=== PATIENT | male | born 1935 | race Caucasian/White ===

== ENCOUNTER 2017-09-16 16:19 | Emergency (ER) | payer OTHER ==
[~2017-09-16] VITALS: Ht 172.7 cm; Wt 98.0 kg
[~2017-09-16 16:19] MED LIST: ACET-1138 PO; ASPEC81 PO; CLB200 PO; EPP3/2 IM; LISI-461 PO; PANT40TA PO; RXC5 PO; SNK PO; THIA250T7 PO
[2017-09-16 16:42] VITALS: TEMP 36.3; Ht 172.7 cm; Wt 98.0 kg
--- NOTE | 2017-09-16 16:57 | EMERGENCY ROOM VISIT NOTE ---
History Report prepared by Ruslan: Reggie Persaud Under the Supervision of: Dr. Jad Carlisle M.D. First contact with patient: 16:46 Chief Complaint: FALL Stated Complaint: FALL- BUMP ON HEAD AND SHOULDER PAIN History of Present Illness The patient is an 82 year old male who presents to the Emergency Room with complaints of constant left shoulder pain following a fall today. The patient states that he tripped today and tried to catch himself before he fell. He notes that he fell onto his left shoulder. He reports that he felt his shoulder "slip out" when he was being helped up. He also complains of a bump on his head and right knee pain. He denies any LOC, hip pain, abdominal pain, vomiting, and elbow pain. The patient states that he does not have any pain when he walks. He notes that he takes medication for his blood pressure. He reports that he had a right knee replacement done 2 years ago. Source of History: patient Onset: today Position: shoulder (left) Timing: constant Associated Symptoms: No LOC, No vomiting, No abdominal pain Note: The patient also complains of a bump on his head and of right knee pain. He denies any hip pain and elbow pain. Review of Systems See HPI for pertinent positives & negatives. A total of 10 systems reviewed and were otherwise negative. Past Medical & Surgical Medical Problems: (1) H/o Lyme disease (2) Hyperlipidemia (3) Hypertension (4) Prostate cancer Surgical Problems: (1) H/O radical prostatectomy (2) H/O right knee surgery (3) Post-operative state (4) S/P cataract surgery Family History Heart disease Hypertension Social History Smoking Status: Former Smoker Marital Status: Housing Status: lives with family Occupation Status: retired Current/Historical Medications Scheduled Aspirin (Aspirin Ec), 81 MG PO DAILY Lisinopril (Lisinopril), 10 MG PO QAM Scheduled PRN Epinephrine (Epipen), 0.3 MG IM UD PRN for ALLERGIC REACTION Allergies Coded Allergies: NO KNOWN DRUG ALLERGIES (Verified Allergy, Mild, ., 11/16/15) BEE STING (Verified Allergy, Unknown, tongue and throat sweling, 11/16/15) Physical Exam Vital Signs Date Time Temp Pulse Resp B/P (MAP) Pulse Ox O2 Delivery O2 Flow Rate FiO2 09/16/17 18:10 88 16 119/85 98 09/16/17 16:42 36.3 94 20 172/93 95 Physical Exam GENERAL: Awake, alert, well-appearing, in no acute distress HENT: Normocephalic, atraumatic. Oropharynx unremarkable. 2in x 2in contusion to the right side of the forehead. EYES: Normal conjunctiva. Sclera non-icteric. NECK: Supple. No nuchal rigidity. FROM. No JVD. RESPIRATORY: Clear to auscultation. CARDIAC: Regular rate, normal rhythm. Extremities warm and well perfused. Pulses equal. ABDOMEN: Soft, non-distended. No tenderness to palpation. No rebound or guarding. No masses. RECTAL: Deferred. MUSCULOSKELETAL: Chest examination reveals no tenderness. The back is symmetrical on inspection without obvious abnormality. There is no CVA tenderness to palpation. No joint edema. Able to lift shoulder to the 90 degree dave. Left arm is neurovascularly intact. Good ROM to wrist and elbow. LOWER EXTREMITIES: Calves are equal size bilaterally and non-tender. No edema. No discoloration. Superficial abrasion to the right knee. No pain with varus or valgus stress. NEURO: Normal sensorium. No sensory or motor deficits noted. SKIN: No rash or jaundice noted. Medical Decision & Procedures ER Provider Diagnostic Interpretation: Radiology results as stated below per my review and radiologist interpretation: L SHOULDER MIN 2 VIEWS ROUTINE FINDINGS: Glenohumeral and acromioclavicular joints congruent. Degenerative changes of the acromioclavicular joint. Minimal degenerative change of the glenohumeral joint evidenced by osteophytosis at the inferior bony glenoid. No acute fracture or malalignment. No radiographic soft tissue abnormality. Visualized portion of the lungs clear. IMPRESSION: 1. No acute osseous injury of the left shoulder. 2. Mild degenerative changes of the acromioclavicular and glenohumeral joints. Electronically signed by: Rhett Shah M.D. 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 Interval development of lucency subjacent to the tibial plateau component, which measures 3 mm laterally but only 2 mm medially. This was not apparent immediately post surgical. Small knee joint effusion evident. Possible prominent loose bodies in the posterior joint versus fabella. Atherosclerosis. No acute fracture or malalignment. IMPRESSION: Interval development of periprosthetic lucency at the tibial plateau medially and laterally but most prominently laterally. This is concerning for infection or loosening. The report will be called/faxed according to standard departmental protocol. Electronically signed by: Rhett Shah M.D. 09/16/2017 5:19 PM HEAD WITHOUT CONTRAST (CT) FINDINGS: Compliance Reviewer topogram: Unremarkable. Ventricles and sulci normal in size. Brain parenchyma normal in appearance with preserved michaels-white differentiation. No mass effect or midline shift. No hemorrhage or acute territorial infarct. No extra-axial fluid collection. Paranasal sinuses and mastoid air cells clear. Irregularity of the inner table of the calvarium in the right frontal region is unchanged since 2014 (series 3 image 19). Significant focal superficial soft tissue hematoma in the right frontal region. No subjacent osseous injury. IMPRESSION: 1. No acute intracranial abnormality. 2. Focal superficial soft tissue hematoma in the right frontal region. No subjacent osseous injury. Electronically signed by: Rhett Shah M.D. 09/16/2017 5:45 PM ED Course 1647: Past medical records reviewed. The patient was evaluated in room B2. A complete history and physical examination was performed. 1802: Upon reexamination the patient is stable. I discussed results and treatment plan with the patient. He verbalizes agreement and understanding. The patient is ready for discharge. Medical Decision Differential diagnosis: Etiologies such as fracture, dislocation, intra-abdominal, pneumothorax, intrathoracic , intracranial, neurologic, as well as other traumatic pathologies were entertained. This is an 82-year-old male who presents to the emergency department after a fall. The patient has a contusion to the right side of his forehead. I stressed the need for ice to this area. The patient is refusing pain medication. He had no loss of consciousness. In addition the patient is also complaining of right knee pain as well as left shoulder pain. The patient is neurovascularly intact and does not appear to have a shoulder dislocation. He was given a sling as his x-rays do not show any acute fracture dislocation or subluxation. I also stressed the need for follow-up with the patient's orthopedic surgeon over concerns that the hardware in his right knee is loosening. Patient was in agreement with the treatment plan. Head Trauma GCS Score: 15 Blood Pressure Screening Patient's blood pressure: Normal blood pressure Blood pressure disposition: Did not require urgent referral Impression Primary Impression: Fall Additional Impressions: Contusion Head injury Shoulder pain, left Knee pain, right Scribe Attestation The scribe's documentation has been prepared under my direction and personally reviewed by me in its entirety. I confirm that the note above accurately reflects all work, treatment, procedures, and medical decision making performed by me. Departure Information Dispostion Home / Self-Care Referrals Carlton Tinoco M.D. (PCP) Forms HOME CARE DOCUMENTATION FORM, IMPORTANT VISIT INFORMATION Patient Instructions [facility] Additional Instructions Follow up with Dr Mobley's office for both knee and shoulder You have been examined and treated today on an emergency basis only. This is not a substitute for, or an effort to provide, complete comprehensive medical care. It is impossible to recognize and treat all injuries or illnesses in a single emergency department visit. It is therefore important that you follow up closely with Dr Tinoco. Call as soon as possible for an appointment. Thank you for your time and consideration. I look forward to speaking with you again soon. Please don't hesitate to call us if you have any questions. Problem Qualifiers Primary Impression: Fall Encounter type: initial encounter Qualified Codes: W19.XXXA - Unspecified fall, initial encounter Additional Impressions: Contusion Encounter type: initial encounter Contusion area: head Contusion of head detail: scalp Qualified Codes: S00.03XA - Contusion of scalp, initial encounter Head injury Encounter type: initial encounter Qualified Codes: S09.90XA - Unspecified injury of head, initial encounter Shoulder pain, left Chronicity: acute Qualified Codes: M25.512 - Pain in left shoulder Knee pain, right Chronicity: acute Qualified Codes: M25.561 - Pain in right knee
[2017-09-16] MEDS ORDERED: ASPI81TA28 PO (17:16)
--- NOTE | 2017-09-16 17:19 | DIAGNOSTIC IMAGING REPORT ---
L SHOULDER MIN 2 VIEWS ROUTINE CLINICAL HISTORY: 82 years-old Male presenting with Pt c/o left shoulder pain . TECHNIQUE: Internal rotation, external rotation, Grashey views of the left shoulder were obtained. COMPARISON: Chest x-ray from 10/21/2015. FINDINGS: Glenohumeral and acromioclavicular joints congruent. Degenerative changes of the acromioclavicular joint. Minimal degenerative change of the glenohumeral joint evidenced by osteophytosis at the inferior bony glenoid. No acute fracture or malalignment. No radiographic soft tissue abnormality. Visualized portion of the lungs clear. IMPRESSION: 1. No acute osseous injury of the left shoulder. 2. Mild degenerative changes of the acromioclavicular and glenohumeral joints. Electronically signed by: Rhett Shah M.D. 09/16/2017 5:17 PM Dictated Date/Time: 09/16/2017 5:16 PM
--- NOTE | 2017-09-16 17:21 | DIAGNOSTIC IMAGING REPORT ---
R KNEE 1 OR 2 VIEWS ROUTINE CLINICAL HISTORY: 82 years-old Male presenting with Pt c/o Rt knee pain, fall. TECHNIQUE: Frontal and lateral views of the right knee were obtained. COMPARISON: 11/16/2015. 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 Interval development of lucency subjacent to the tibial plateau component, which measures 3 mm laterally but only 2 mm medially. This was not apparent immediately post surgical. Small knee joint effusion evident. Possible prominent loose bodies in the posterior joint versus fabella. Atherosclerosis. No acute fracture or malalignment. IMPRESSION: Interval development of periprosthetic lucency at the tibial plateau medially and laterally but most prominently laterally. This is concerning for infection or loosening. The report will be called/faxed according to standard departmental protocol. Electronically signed by: Rhett Shah M.D. 09/16/2017 5:19 PM Dictated Date/Time: 09/16/2017 5:17 PM
--- NOTE | 2017-09-16 17:46 | DIAGNOSTIC IMAGING REPORT ---
HEAD WITHOUT CONTRAST (CT) CLINICAL HISTORY: 82 years-old Male presenting with Pt c/o head pain, fall, hematoma on the for head. TECHNIQUE: Multidetector CT imaging of the head was performed without the use of intravenous contrast. IV contrast: None. A dose lowering technique was used consistent with the principles of ALARA (as low as reasonably achievable). COMPARISON: 04/28/2015. CT DOSE (mGy.cm): The estimated cumulative dose is 712.55 mGy.cm. FINDINGS: Prescription Clerk topogram: Unremarkable. Ventricles and sulci normal in size. Brain parenchyma normal in appearance with preserved michaels-white differentiation. No mass effect or midline shift. No hemorrhage or acute territorial infarct. No extra-axial fluid collection. Paranasal sinuses and mastoid air cells clear. Irregularity of the inner table of the calvarium in the right frontal region is unchanged since 2015 (series 3 image 19). Significant focal superficial soft tissue hematoma in the right frontal region. No subjacent osseous injury. IMPRESSION: 1. No acute intracranial abnormality. 2. Focal superficial soft tissue hematoma in the right frontal region. No subjacent osseous injury. Electronically signed by: Rhett Shah M.D. 09/16/2017 5:45 PM Dictated Date/Time: 09/16/2017 5:42 PM
[2017-09-16 18:10] VITALS: BP 119/85; PULSE 88; O2SAT 98
== END 2017-09-16 18:12 | disposition home or self-care (01) ==
LOC: C.EDB 16:20
DX: S00.03XA Contusion of scalp, initial encounter (principal); W01.0XXA Fall on same level from slipping, tripping and stumbling without subsequent striking against object, initial encounter; M25.512 Pain in left shoulder; M25.561 Pain in right knee; I10 Essential (primary) hypertension; E78.5 Hyperlipidemia, unspecified; Z87.891 Personal history of nicotine dependence; Z79.82 Long term (current) use of aspirin; Z91.030 Bee allergy status; Z82.49 Family history of ischemic heart disease and other diseases of the circulatory system

== ENCOUNTER → 2017-10-01 | Outpatient (CLI) | payer OTHER ==
[~2017-10-01] MED LIST changes: -ACET-1138 PO; -ASPEC81 PO; +ASPI81TA28 PO; -CLB200 PO; -PANT40TA PO; -RXC5 PO; -SNK PO; -THIA250T7 PO
== END | disposition home or self-care (01) ==
LOC: C.CPL 11:57
PROVIDERS: ATTEND Orthopaedic Surgery
DX: M25.512 Pain in left shoulder (principal)

== ENCOUNTER 2022-03-09 06:01 | Inpatient (IN) ==
[2022-03-09] MEDS ORDERED: dilTIAZem HCl 5 MG/ML 5 ML VIAL IV STA (06:21)
--- NOTE | 2022-03-09 06:28 | Emergency Department Note ---
Impression & Plan Atrial fibrillation with rapid ventricular response, CHF (congestive heart failure), Elevated troponin I level ED Provider Note NAME: PARIS MUNOZ AGE: 86 SEX: M : 1935 ARRIVES VIA: Ambulance INFORMANT: Patient, EMS ED PROVIDER(S): Tayo Sanchez DO CHIEF COMPLAINT: Shortness of breath HPI: The patient is an 86-year-old male who presented to the emergency department for an evaluation of shortness of breath. The patient was seen in our facility a few weeks ago. At that time he was diagnosed with an upper respiratory tract infection. He was started on a short course of steroids which she finished recently. He states he has started to notice over the last week or so that he is becoming more short of breath especially with exertion but also with lying flat. He did note some swelling in his legs. He also notices that his heart is racing. He has no history of irregular heartbeat in the past. His symptoms became much more severe this morning. He called 911 and arrived at the emergency department via ambulance. The patient denies having any abdominal pain. He notices no black or bloody bowel moods. He notices no chest discomfort but does describe that his breathing is starting to get worse and he feels like he has the upper respiratory tract infection again. He has no history of irregular heartbeat. ROS: See above HPI for pertinent positives & negatives. A total of 10 systems reviewed and were otherwise negative. PAST MEDICAL HISTORY: See Below PAST SURGICAL HISTORY: See Below FAMILY HISTORY: See Below SOCIAL HISTORY: See Below HOME MEDICATIONS: See Below ALLERGIES: See Below VITALS: See Below PHYSICAL EXAMINATION: GENERAL: Patient is awake alert in no acute distress patient is resting comfortably and showing no signs of anxiety EYES: The conjunctivae are clear. The pupils are round and reactive. EARS, NOSE, MOUTH AND THROAT: The nose is without any evidence of any deformity. Mucous membranes are moist. Tongue is midline. NECK: The neck is nontender and supple. RESPIRATORY: Diminished breath sounds are noted at both bases. There were rales at both bases. CARDIOVASCULAR: Tachycardic and irregular heart sounds were noted auscultation. There is no definite murmur. GASTROINTESTINAL: The abdomen is soft. Abdomen is nontender. MUSCULOSKELETAL/EXTREMITIES: There is no evidence of gross deformity full range of motion is noted in the hips and shoulders. SKIN: Skin is warm and dry. Trace pedal edema was noted bilaterally. NEUROLOGIC: Patient is awake alert and oriented x3 MEDICAL DECISION MAKING: The patient is an 86-year-old male who presented to the emergency department for an evaluation of difficulty breathing and palpitations. The patient was found to be in rapid atrial fibrillation. He was treated with Cardizem in the emergency department. He also had a history and physical exam that was consistent with CHF. I do feel the CHF is likely secondary to the atrial fibrillation with RVR. His rate was well controlled after the Cardizem. I discussed the patient's condition with him. [facility] also [facility] agreed to evaluate the patient in the emergency department for further management and disposition. Triage Nursing notes reviewed. Prior medical records reviewed Vital Signs: reviewed and remarkable for no significant abnormalities Differential diagnosis: Reactive airway disease, pneumonia, pneumothorax, COPD, CHF, infections, cardiac ischemia, pulmonary embolism, musculoskeletal, gastrointestinal, as well as other pathologies. ER treatment provided: See below Diagnostics interpreted by me: ECG: EKG was obtained in the emergency department. My interpretation is atrial fibrillation at 135 bpm. PVCs were noted. Poor R wave progression was noted. There was no acute ST segment abnormalities appreciated. This was compared to a tracing from October 01, 2017. Fibrillation is new compared to the previous tracing. Cardiac Monitoring: An order was placed for continuous cardiac monitoring. The monitor shows a rate of 96 bpm with atrial fibrillation. Laboratory studies: As stated above and show below. Imaging studies: See below Consultation(s): Discussed this case with Dr. Nolasco who [facility]. Past Med/Surg History Medical History H/o Lyme disease "treated around year 1999" Hyperlipidemia Hypertension Prostate cancer "s/p radical prostatectomy 1994" Pseudogout of hand TIA (transient ischemic attack) Surgical History H/O radical prostatectomy S/P cataract surgery Social History Smoking Status: Never smoker Preferred Language: Yi Feels Safe at Home: Yes Allergies Allergies Allergy/AdvReac Type Severity Reaction Status Date / Time No Known Drug Allergies Allergy Mild . Verified 11/16/15 09:58 bee venom protein (honey bee) Allergy Unknown tongue and Verified 11/16/15 09:58 throat sweling Home Meds Home Medications Medication Instructions Recorded Confirmed EPINEPHRINE (EPIPEN) 0.3 mg IM UD PRN ALLERGIC REACTION 04/28/15 ##0 Lisinopril 10 mg PO QAM ##0 04/28/15 ASPIRIN (ASPIRIN EC) 81 mg PO DAILY ##0 09/16/17 Results & Data (ED) Vital Signs Vital Signs - 24 hr 03/09/22 06:14 03/09/22 06:14 03/09/22 06:14 Temperature 36.6 C Temperature Source Oral Pulse Rate 138 H Pulse Rate [Finger] Pulse Rhythm Respiratory Rate 18 Respiratory Effort / Characteristics Non-Labored Spontaneous Non-Labored Spontaneous Respiratory Depth Normal Normal Respiratory Pattern Regular Blood Pressure 143/103 H Blood Pressure [Right Arm] Blood Pressure Mean 116 Blood Pressure Mean [Right Arm] Blood Pressure Position Sitting Blood Pressure Position [Right Arm] Pulse Oximetry 94 94 Oxygen Delivery Method Room Air Room Air Room Air Sepsis Recent Fever Within 48 Hours No Sepsis New/Unexplained Change in Mental Status No Sepsis Action Taken by Nursing No Action Required 03/09/22 06:20 03/09/22 06:21 03/09/22 06:38 Temperature Temperature Source Pulse Rate 138 H Pulse Rate [Finger] 138 H 96 H Pulse Rhythm Irregular Respiratory Rate 18 18 Respiratory Effort / Characteristics Non-Labored Spontaneous Respiratory Depth Normal Respiratory Pattern Blood Pressure Blood Pressure [Right Arm] 143/103 H 139/86 Blood Pressure Mean Blood Pressure Mean [Right Arm] 116 103 Blood Pressure Position Blood Pressure Position [Right Arm] Sitting Sitting Pulse Oximetry 94 94 Oxygen Delivery Method Room Air Room Air Sepsis Recent Fever Within 48 Hours Sepsis New/Unexplained Change in Mental Status Sepsis Action Taken by [facility] Medications Current Medication List: was personally reviewed by me Laboratory Data Attestation: I reviewed the patient's lab results. Result diagrams: 03/09/22 Unknown 03/09/22 Unknown Lab Results 03/09/22 03/09/22 03/09/22 Range/Units 06:32 06:39 06:39 WBC (4.8-10.8) K/ul RBC (4.63-6.08) M/uL Hgb (14.0-18.0) g/dl Hct (40.1-51.0) % MCV (80.0-100.0) fL MCH (25.0-34.0) pg MCHC (32.0-36.0) g/dL RDW Std Deviation (36.4-46.3) fL RDW Coeff of Radha (11.5-14.5) % Plt Count (130-400) K/uL MPV (9.4-12.4) fL Immature Gran % (Auto) % Neut % (Auto) % Lymph % (Auto) % Tompkins % (Auto) % Eos % (Auto) % Baso % (Auto) % Neut # (Auto) (1.4-6.5) K/uL Lymph # (Auto) (1.2-3.4) K/uL Tompkins # (Auto) (0.24-0.82) K/uL Eos # (Auto) (0-0.50) K/uL Baso # (Auto) (0-0.2) K/uL Immature Gran # (Auto) (0.00-0.02) K/uL ESR (0-20) mm/hr PT (9.0-12.0) Seconds INR (0.9-1.1) APTT (21.0-31.0) Seconds PTT Ratio VBG pH 7.46 H (7.36-7.41) VBG pCO2 29 L (38-50) mmHg VBG pO2 57 mmHg VBG HCO3 21 mmol/L VBG O2 Saturation 87.2 % VBG Base Excess -2.1 mEq/L Sodium (136-145) mmol/L Potassium (3.5-5.1) mmol/L Chloride (98-107) mmol/L Carbon Dioxide (21-32) mmol/L Anion Gap (3-11) BUN (6-23) mg/dl Creatinine (0.6-1.4) mg/dl Est Cr Clr Drug Dosing ml/min Est GFR ( Amer) ml/min Est GFR (Non-Af Amer) ml/min BUN/Creatinine Ratio (10-20) Glucose (70-99(Fasting)) mg/dl Calcium (8.5-10.1) mg/dl Magnesium (1.7-2.4) mg/dl Total Bilirubin (0.2-1.0) mg/dl AST (13-39) U/L ALT (7-52) U/L Alkaline Phosphatase (34-104) U/L Troponin I High Sens (0-20) pg/ml C-Reactive Protein (0-0.5) mg/dl B-Natriuretic Peptide 608 H (0-100) pg/ml Total Protein (6.0-8.3) gm/dl Albumin (3.4-5.0) gm/dl Globulin (2.5-4.0) gm/dl Albumin/Globulin Ratio (0.9-2) Procalcitonin (0-0.5) ng/ml TSH (0.300-4.500) uIu/ml SARS-CoV-2, RNA, NAAT NEGATIVE (NEGATIVE) 03/09/22 03/09/22 03/09/22 Range/Units 06:46 Unknown Unknown WBC 12.44 H (4.8-10.8) K/ul RBC 5.83 (4.63-6.08) M/uL Hgb 17.2 (14.0-18.0) g/dl Hct 50.6 (40.1-51.0) % MCV 86.8 (80.0-100.0) fL MCH 29.5 (25.0-34.0) pg MCHC 34.0 (32.0-36.0) g/dL RDW Std Deviation 48.8 H (36.4-46.3) fL RDW Coeff of Radha 16.4 H (11.5-14.5) % Plt Count 227 (130-400) K/uL MPV 11.4 (9.4-12.4) fL Immature Gran % (Auto) 0.7 % Neut % (Auto) 79.4 % Lymph % (Auto) 10.5 % Tompkins % (Auto) 8.0 % Eos % (Auto) 1.2 % Baso % (Auto) 0.2 % Neut # (Auto) 9.87 H (1.4-6.5) K/uL Lymph # (Auto) 1.31 (1.2-3.4) K/uL Tompkins # (Auto) 0.99 H (0.24-0.82) K/uL Eos # (Auto) 0.15 (0-0.50) K/uL Baso # (Auto) 0.03 (0-0.2) K/uL Immature Gran # (Auto) 0.09 H (0.00-0.02) K/uL ESR (0-20) mm/hr PT 11.7 (9.0-12.0) Seconds INR 1.1 (0.9-1.1) APTT 23.9 (21.0-31.0) Seconds PTT Ratio 0.9 VBG pH (7.36-7.41) VBG pCO2 (38-50) mmHg VBG pO2 mmHg VBG HCO3 mmol/L VBG O2 Saturation % VBG Base Excess mEq/L Sodium 140 (136-145) mmol/L Potassium 3.7 (3.5-5.1) mmol/L Chloride 106 (98-107) mmol/L Carbon Dioxide 22 (21-32) mmol/L Anion Gap 12 H (3-11) BUN 31 H (6-23) mg/dl Creatinine 1.12 (0.6-1.4) mg/dl Est Cr Clr Drug Dosing 56.7 ml/min Est GFR ( Amer) 69.5 ml/min Est GFR (Non-Af Amer) 60.0 ml/min BUN/Creatinine Ratio 27.7 H (10-20) Glucose 112 H (70-99(Fasting)) mg/dl Calcium 9.4 (8.5-10.1) mg/dl Magnesium 2.3 (1.7-2.4) mg/dl Total Bilirubin 1.3 H (0.2-1.0) mg/dl AST 22 (13-39) U/L ALT 42 (7-52) U/L Alkaline Phosphatase 65 (34-104) U/L Troponin I High Sens 23.9 H (0-20) pg/ml C-Reactive Protein (0-0.5) mg/dl B-Natriuretic Peptide (0-100) pg/ml Total Protein 6.5 (6.0-8.3) gm/dl Albumin 4.1 (3.4-5.0) gm/dl Globulin 2.4 L (2.5-4.0) gm/dl Albumin/Globulin Ratio 1.7 (0.9-2) Procalcitonin (0-0.5) ng/ml TSH (0.300-4.500) uIu/ml SARS-CoV-2, RNA, NAAT (NEGATIVE) 03/09/22 03/09/22 03/09/22 Range/Units Unknown Unknown Unknown WBC (4.8-10.8) K/ul RBC (4.63-6.08) M/uL Hgb (14.0-18.0) g/dl Hct (40.1-51.0) % MCV (80.0-100.0) fL MCH (25.0-34.0) pg MCHC (32.0-36.0) g/dL RDW Std Deviation (36.4-46.3) fL RDW Coeff of Radha (11.5-14.5) % Plt Count (130-400) K/uL MPV (9.4-12.4) fL Immature Gran % (Auto) % Neut % (Auto) % Lymph % (Auto) % Tompkins % (Auto) % Eos % (Auto) % Baso % (Auto) % Neut # (Auto) (1.4-6.5) K/uL Lymph # (Auto) (1.2-3.4) K/uL Tompkins # (Auto) (0.24-0.82) K/uL Eos # (Auto) (0-0.50) K/uL Baso # (Auto) (0-0.2) K/uL Immature Gran # (Auto) (0.00-0.02) K/uL ESR 12 (0-20) mm/hr PT Cancelled (9.0-12.0) Seconds INR Cancelled (0.9-1.1) APTT Cancelled (21.0-31.0) Seconds PTT Ratio Cancelled VBG pH (7.36-7.41) VBG pCO2 (38-50) mmHg VBG pO2 mmHg VBG HCO3 mmol/L VBG O2 Saturation % VBG Base Excess mEq/L Sodium (136-145) mmol/L Potassium (3.5-5.1) mmol/L Chloride (98-107) mmol/L Carbon Dioxide (21-32) mmol/L Anion Gap (3-11) BUN (6-23) mg/dl Creatinine (0.6-1.4) mg/dl Est Cr Clr Drug Dosing ml/min Est GFR ( Amer) ml/min Est GFR (Non-Af Amer) ml/min BUN/Creatinine Ratio (10-20) Glucose (70-99(Fasting)) mg/dl Calcium (8.5-10.1) mg/dl Magnesium (1.7-2.4) mg/dl Total Bilirubin (0.2-1.0) mg/dl AST (13-39) U/L ALT (7-52) U/L Alkaline Phosphatase (34-104) U/L Troponin I High Sens (0-20) pg/ml C-Reactive Protein (0-0.5) mg/dl B-Natriuretic Peptide (0-100) pg/ml Total Protein (6.0-8.3) gm/dl Albumin (3.4-5.0) gm/dl Globulin (2.5-4.0) gm/dl Albumin/Globulin Ratio (0.9-2) Procalcitonin (0-0.5) ng/ml TSH 4.029 (0.300-4.500) uIu/ml SARS-CoV-2, RNA, NAAT (NEGATIVE) 03/09/22 03/09/22 Range/Units Unknown Unknown WBC (4.8-10.8) K/ul RBC (4.63-6.08) M/uL Hgb (14.0-18.0) g/dl Hct (40.1-51.0) % MCV (80.0-100.0) fL MCH (25.0-34.0) pg MCHC (32.0-36.0) g/dL RDW Std Deviation (36.4-46.3) fL RDW Coeff of Radha (11.5-14.5) % Plt Count (130-400) K/uL MPV (9.4-12.4) fL Immature Gran % (Auto) % Neut % (Auto) % Lymph % (Auto) % Tompkins % (Auto) % Eos % (Auto) % Baso % (Auto) % Neut # (Auto) (1.4-6.5) K/uL Lymph # (Auto) (1.2-3.4) K/uL Tompkins # (Auto) (0.24-0.82) K/uL Eos # (Auto) (0-0.50) K/uL Baso # (Auto) (0-0.2) K/uL Immature Gran # (Auto) (0.00-0.02) K/uL ESR (0-20) mm/hr PT (9.0-12.0) Seconds INR (0.9-1.1) APTT (21.0-31.0) Seconds PTT Ratio VBG pH (7.36-7.41) VBG pCO2 (38-50) mmHg VBG pO2 mmHg VBG HCO3 mmol/L VBG O2 Saturation % VBG Base Excess mEq/L Sodium (136-145) mmol/L Potassium (3.5-5.1) mmol/L Chloride (98-107) mmol/L Carbon Dioxide (21-32) mmol/L Anion Gap (3-11) BUN (6-23) mg/dl Creatinine (0.6-1.4) mg/dl Est Cr Clr Drug Dosing ml/min Est GFR ( Amer) ml/min Est GFR (Non-Af Amer) ml/min BUN/Creatinine Ratio (10-20) Glucose (70-99(Fasting)) mg/dl Calcium (8.5-10.1) mg/dl Magnesium (1.7-2.4) mg/dl Total Bilirubin (0.2-1.0) mg/dl AST (13-39) U/L ALT (7-52) U/L Alkaline Phosphatase (34-104) U/L Troponin I High Sens (0-20) pg/ml C-Reactive Protein 0.69 H (0-0.5) mg/dl B-Natriuretic Peptide (0-100) pg/ml Total Protein (6.0-8.3) gm/dl Albumin (3.4-5.0) gm/dl Globulin (2.5-4.0) gm/dl Albumin/Globulin Ratio (0.9-2) Procalcitonin < 0.05 (0-0.5) ng/ml TSH (0.300-4.500) uIu/ml SARS-CoV-2, RNA, NAAT (NEGATIVE) Administered Medications Discontinued Medications Diltiazem HCl (Diltiazem Hcl 5 Mg/Ml 5 Ml Vial) 20 mg IV NOW STA Stop: 03/09/22 06:22 Last Admin: 03/09/22 06:23 Dose: 20 mg Documented By: CC Co-signed By: MICHELE Imaging Data Radiologist's Impression: Chest X-Ray 09/15/22 06:06 XR chest 1V portable HISTORY: 86 years-old Male Dyspnea acute shortness of breath COMPARISON: Chest radiographs 10/21/2015 TECHNIQUE: Portable AP view of the chest FINDINGS: Cardiac silhouette is enlarged. Left greater than right pleural effusions with bibasilar consolidative opacities. Pulmonary vascular congestion with interstitial coarsening. No pneumothorax. Degenerative changes of the shoulders and spine. IMPRESSION: 1. Cardiomegaly with pulmonary edema. 2. Small left greater than right pleural effusions. 3. Bibasilar consolidation suggestive of atelectasis versus pneumonia. ACT 112: Negative or not required by law. The above report was generated using voice recognition software. It may contain grammatical, syntax or spelling errors. Electronically signed by: Angelito Rosas M.D. 03/09/2022 7:23 AM Discharge Plan Visit Data Chief Complaint: Shortness of Breath/Dyspnea ED Provider: Tayo Sanchez Discharge Problem: Atrial fibrillation with rapid ventricular response, CHF (congestive heart failure), Elevated troponin I level Patient Disposition: Being Evaluated by Hospitalist Forms Stand Alone Forms: [facility] [employer] Prescriptions Prescriptions: No Action Lisinopril 10 MG tablet 10 mg PO QAM Qty: 0 EPINEPHRINE (EPIPEN) 0.3 MG/0.3 ML INJECTION 0.3 mg IM UD PRN (Reason: ALLERGIC REACTION) Qty: 0 ASPIRIN (ASPIRIN EC) 81 MG tablet 81 mg PO DAILY Qty: 0 Referrals Referrals: Carlton Tinoco MD [Primary Care Provider] -
[2022-03-09 06:32] LABS: Basophils # (auto) 0.03 K/uL (0-0.2); Basophils % (auto) 0.2 %; Eosinophils # (auto) 0.15 K/uL (0-0.50); Eosinophils % (auto) 1.2 %; Hematocrit (blood only) 50.6 % (40.1-51.0); Hemoglobin 17.2 g/dl (14.0-18.0); Immature Granulocytes # (auto) 0.09 K/uL (0.00-0.02); Immature Granulocytes % (auto) 0.7 %; Lymphocytes # (auto) 1.31 K/uL (1.2-3.4); Lymphocytes % (auto) 10.5 %; Mean Corpuscular Hemoglobin 29.5 pg (25.0-34.0); Mean Corpuscular Volume 86.8 fL (80.0-100.0); Mean Platelet Volume 11.4 fL (9.4-12.4); Monocytes # (auto) 0.99 K/uL (0.24-0.82); Neutrophils # (auto) 9.87 K/uL (1.4-6.5); Neutrophils % (auto) 79.4 %; Platelet Count 227 K/uL (130-400); RDW Coefficient of Variation 16.4 % (11.5-14.5); RDW Standard Deviation 48.8 fL (36.4-46.3); Red Blood Count 5.83 M/uL (4.63-6.08); White Blood Count 12.44 K/ul (4.8-10.8)
[2022-03-09 06:53] LABS: Base Excess VBG -2.1 mEq/L; HCO3 VBG 21 mmol/L; Oxygen Saturation VBG 87.2 %; PCO2 VBG 29 mmHg (38-50); PO2 VBG 57 mmHg; pH VBG 7.46 (7.36-7.41)
[2022-03-09 07:00] LABS: Albumin Globulin Ratio 1.7 (0.9-2); Albumin Level 4.1 gm/dl (3.4-5.0); BUN Creatinine Ratio 27.7 (10-20); Bilirubin,Total 1.3 mg/dl (0.2-1.0); Calcium 9.4 mg/dl (8.5-10.1); Creatinine Clr Calc Pharmacy 56.7 ml/min; Est GFR (African American) 69.5 ml/min; Globulin 2.4 gm/dl (2.5-4.0); Magnesium 2.3 mg/dl (1.7-2.4); Potassium 3.7 mmol/L (3.5-5.1); Total Protein 6.5 gm/dl (6.0-8.3); Troponin I High Sensitivity 23.9 pg/ml (0-20)
[2022-03-09 07:06] LABS: INR 1.1 (0.9-1.1); Partial Thromboplastin Ratio 0.9; Partial Thromboplastin Time 23.9 Seconds (21.0-31.0); Prothrombin Time 11.7 Seconds (9.0-12.0)
--- NOTE | 2022-03-09 07:24 | XRay Report ---
XR chest 1V portable HISTORY: 86 years-old Male Dyspnea acute shortness of breath COMPARISON: Chest radiographs 10/21/2015 TECHNIQUE: Portable AP view of the chest FINDINGS: Cardiac silhouette is enlarged. Left greater than right pleural effusions with bibasilar consolidativ e opacities. Pulmonary vascular congestion with interstitial coarsening. No pneumothorax. Degenerativ e changes of the shoulders and spine. IMPRESSION: 1. Cardiomegaly with pulmonary edema. 2. Small left greater than right pleural effusions. 3. Bibasilar consolidation suggestive of atelectasis versus pneumonia. ACT 112: Negative or not required by law. The above report was generated using voice recognition software. It may contain grammatical, syntax o r spelling errors. Electronically signed by: Angelito Rosas M.D. 03/09/2022 7:23 AM
[2022-03-09] MEDS ORDERED: NITROGLYCERIN SL 0.4 MG/TAB TAB SL PRN (07:48)
[2022-03-09] MEDS ORDERED: ACETAMINOPHEN 325 MG TAB PO PRN (07:48)
[2022-03-09] MEDS ORDERED: POLYETHYLENE (MIRALAX) 17 GM PACK PO PRN (07:48)
[2022-03-09] MEDS ORDERED: ENOXAPARIN INJ 40 MG/0.4 ML SYR SQ STA (08:10)
--- NOTE | 2022-03-09 08:27 | History & Physical Report ---
Date of Service March 09, 2022 Assessment & Plan (1) Atrial fibrillation with rapid ventricular response: (2) (HFpEF) heart failure with preserved ejection fraction: (3) HTN (hypertension): (4) HLD (hyperlipidemia): Plan Mr. Uli Gregory is an 86 year old male who presented to the [facility] with SOB over the past few weeks, on and off, with more orthopnea this morning, along with feelings of 'his heart racing'. Three weeks ago he was seen in urgent care and treated for a URI with Prednisone (no abx). + Bilateral LE swelling. CXR L > R pleural effusions and atelectasis vs CAP. Recently was treated as an OPT for nummular eczema and was switched from Lisinopril to Amlodipine in case the ACEI was a contributor to his rash. BNP 608 and most recent ECHO was from 11/2021: EF 55-60% with mild TR but no pHTN. Additional PMH includes: HLD, HTN, prostate ca, H/O TIA and H/O Lymes Disease. 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 AF with RVR: New onset; confirmed on EKG Received loading dose of Cardizem in ED Will start Cardizem gtt at 5 Cards Consult placed; discussed with Dr. Dante Galicia will see pt PCU admit for new onset AF and gtt management Received on injection of Lovenox; will order Heparin gtt no bolus NPO for now HFpEF: Latest ECHO: 11/2021: EF 55-60%; mild TR, no pHTN Repeat ECHO pending BNP 608 Troponin 23.9; will trend One dose of Lasix 20mg IV now; continue to monitor for further maintenance Cards consult placed Monitor I/O Pleural Effusions: Had a cough and URI over past few weeks; completed a Prednisone taper pack Leukocytosis: WBC 12.44 CXR Atelectasis vs CAP Will empirically tx with Rocephin Sputum culture pending CXR in AM; BMP in AM Procal pending COVID-19 swab pending HTN: Goal SBP < 140 Recently Lisinopril switched to Amlodipine d/t nummular eczema. Continue Amlodipine HLD: Diet controlled 03/16; LDL 82, HDL 53; TG 97 Nummular Eczema: Resolving; some rash noted on left forearm and back Takes Temovate create; continue Disposition: PCP: Dr. Tinoco Code: Full Point of Contact: [place], daughter [phone] Plan to return home post [place] History of Present Illness Chief Complaint: Shortness of Breath Primary Care Provider: Carlton Tinoco MD Mr. Uli Gregory is an 86 year old male who presented to the [facility] via EMS after he called 911. He has stated that he has been experiencing SOB over the past few weeks, on and off, with more orthopnea this morning, along with feelings of 'his heart racing'. Three weeks ago he was seen in urgent care and treated for a URI with Prednisone (no abx). He also reports increased bilateral LE swelling. A CXR was performed and results indicate L > R pleural effusions and atelectasis vs community-acquired pneumonia. He recently was treated as an outpatient for nummular eczema and was switched from Lisinopril to Amlodipine in case the ACEI was a contributor to his rash. In the ED, his BNP was 608 and his most recent ECHO was from 11/2021: EF 55-60% with mild TR but no pHTN. Additional PMH includes: HLD, HTN, prostate ca, H/O TIA and H/O Lymes Disease. Pt denies alcohol, smoking, recreational drug use. 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 Patient will be admitted for further evaluation and management. Please see A/P for further details. Allergies Allergy/AdvReac Type Severity Reaction Status Date / Time No Known Drug Allergies Allergy Mild . Verified 11/16/15 09:58 bee venom protein (honey bee) Allergy Unknown tongue and Verified 11/16/15 09:58 throat sweling Home Medications Medication Instructions Recorded Confirmed Type EPINEPHRINE (EPIPEN) 0.3 mg IM UD PRN ALLERGIC REACTION 04/28/15 History ##0 Lisinopril 10 mg PO QAM ##0 04/28/15 History ASPIRIN (ASPIRIN EC) 81 mg PO DAILY ##0 09/16/17 History Past Med/Surg History Medical History (Updated 03/09/22 @ 09:27 by JOSH Pathak) (HFpEF) heart failure with preserved ejection fraction H/o Lyme disease "treated around year 1999" HLD (hyperlipidemia) HTN (hypertension) Hyperlipidemia Hypertension Prostate cancer "s/p radical prostatectomy 1994" Pseudogout of hand TIA (transient ischemic attack) Surgical History H/O radical prostatectomy S/P cataract surgery Social History Smoking Status: Never smoker Preferred Language: Upper Sorbian Feels Safe at Home: Yes Review of Systems Review of Systems: Neuro: (-) Falls, trauma, slurred speech HEENT: (-) [place], dizziness, dysphagia, visual or auditory changes CV: (-) CP, palpitations, (+) swelling in both legs, Resp: (-) SOB GI: (-) appetite changes, N/V/D, bowel changes, (-) black/tarry stools or blood in stool : (-) urinary changes Skin: (+) rash Psych: (-) anxiety, depression Physical Exam Physical Exam: Neuro: AAOx4, PERRLA, no aphagia, memory changes, CNII-XII grossly intact HEENT: head normocephalic, moist mucus membranes CV: S1/S2, (-) M/G/R, (+) 2 /L LE edema, cap refill < 3 seconds Resp: Lungs CTA in all dowd. On RA GI: Abdomen S/NT/ND, Ax4 bowel sounds, (-) CVA tenderness Musculoskeletal: 5/5 B/L UE strength, 5/5 B/L LE strength. No gait disturbance Skin: (+) rashes, not new , (-) erythema. Psych: euthymic mood Results & Data Results & Data ([facility]) Vital Signs (Past 12 Hours) Vital Signs Temp Pulse Pulse Resp BP BP Pulse Ox 03/09/22 06:38 96 H 139/86 03/09/22 06:21 138 H 18 94 03/09/22 06:20 138 H 18 143/103 H 94 03/09/22 06:14 94 03/09/22 06:14 36.6 C 138 H 18 143/103 H 94 03/09/22 06:14 O2 Del Method 03/09/22 06:38 03/09/22 06:21 Room Air 03/09/22 06:20 Room Air 03/09/22 06:14 Room Air 03/09/22 06:14 Room Air 03/09/22 06:14 Room Air Laboratory Results Short CBC 03/09/22 Range/Units Unknown WBC 12.44 H (4.8-10.8) K/ul Hgb 17.2 (14.0-18.0) g/dl Hct 50.6 (40.1-51.0) % Plt Count 227 (130-400) K/uL BMP 03/09/22 Unknown Sodium 140 Potassium 3.7 Chloride 106 Carbon Dioxide 22 BUN 31 H Creatinine 1.12 Glucose 112 H Calcium 9.4 Liver Function 03/09/22 Range/Units Unknown Total Bilirubin 1.3 H (0.2-1.0) mg/dl AST 22 (13-39) U/L ALT 42 (7-52) U/L Alkaline Phosphatase 65 (34-104) U/L Albumin 4.1 (3.4-5.0) gm/dl Diagnostic Findings Chest X-Ray 03/09/22 06:06 XR chest 1V portable HISTORY: 86 years-old Male Dyspnea acute shortness of breath COMPARISON: Chest radiographs 10/21/2015 TECHNIQUE: Portable AP view of the chest FINDINGS: Cardiac silhouette is enlarged. Left greater than right pleural effusions with bibasilar consolidative opacities. Pulmonary vascular congestion with interstitial coarsening. No pneumothorax. Degenerative changes of the shoulders and spine. IMPRESSION: 1. Cardiomegaly with pulmonary edema. 2. Small left greater than right pleural effusions. 3. Bibasilar consolidation suggestive of atelectasis versus pneumonia. ACT 112: Negative or not required by law. The above report was generated using voice recognition software. It may contain grammatical, syntax or spelling errors. Electronically signed by: Angelito Rosas M.D. 03/09/2022 7:23 AM ECG Additional Comments: AF with RVR HR 135 QRS 86 ms QtC: 468 Code Status & VTE Plan Code Status Full Code in the event of cardiac or respiratory arrest VTE Prophylaxis Plan VTE Prophylaxis will be ordered: Yes Supervising Physician Co-Signing Physician Notes Patient presenting with several weeks of progressive shortness of breath and orthopnea, denies chest pain or palpitations, n/v, LOC, light headedness, dizziness. Found to be in Afib with RVR and pulmonary congestion. Initially responded to diltiazem IV in ED. On RA, trace LE edema, lungs CTAB, irregularly irregular rhythm on exam and afib on ECG with rates in 120-130s. TTE ordered to evaluate cardiac function and thrombus. heparin drip and diltiazem drip ordered, cardiology to see the patient. PCU/telemetry admission. Saw and examined the patient and discussed with provider and agree with above assessment and plan.
[2022-03-09] MEDS ORDERED: STAT IV Infusion **Titration per Protocol STA (09:57)
--- NOTE | 2022-03-09 10:07 | Cardiology Consultation ---
Date of Consultation March 09, 2022 Assessment & Plan (1) Atrial fibrillation with rapid ventricular response: (2) CHF (congestive heart failure): (3) Elevated troponin I level: (4) HTN (hypertension): Plan Patient admitted for worsening SOB, found to have afib RVR, duration uncertain, but potentially started several weeks ago correlating with his onset of his SOB. He has developed small b/l pleural effusions, edema, orthopnea, consistent with acute HF exacerbation, in setting of afib RVR. Echo in November revealed preserved EF. Repeat echo pending at time of consult. [id number] score of 6 (age, CHF, HTN, possible prior TIA in 2018) and will need anticoagulation ferry terminal agent. No history of anemia or bleeding complications. No recent falls. This was discussed with patient. Agree with IV heparin and transition to oral anticoagulant prior to discharge. Agree with IV diltiazem for rate/rhythm control initially and likely transition to oral beta jos. Given b/l pleural effusions, dyspnea, will give one dose furosemide 40 mg IV now and potassium 20 meq now. Monitor fluid status including I+O's and daily weight. Further recommendations pending response to dose of diuretic and initiation of IV diltiazem. Case discussed with Dr. Howell. Will Follow. Supervising Physician Co-Signing Physician Notes Supervising Physician Attestation: I have personally performed a history and physical examination on the patient. I agree with the physician assistant laboratory director's findings and plan as documented with the following additions. Subjective: Patient with complaints of subacute progressive shortness of breath for 4 weeks. Denies any subjective sensation of a fast or irregular heart rate. Ongoing atrial fibrillation with ventricular rates in the 120s present at the time of my assessment in emergency room bay A 10, daughter at the bedside. Exam: Pulmonary: Decreased breath sounds at bases Cardiovascular tachycardic, regular rhythm, no murmurs, no edema Data: Formal report of echocardiogram pending Assessment and Plan: Newly diagnosed atrial fibrillation, rapid ventricular spots, superimposed heart failure -Diltiazem intravenous infusion for rate control, add metoprolol as blood pressure allows -Unfractionated heparin for stroke prophylaxis, likely to be transitioned to Eliquis 5 mg twice daily Bret Howell, DO History of Present Illness Reason for Consultation: Atrial fibrillation RVR Requesting Physician: Dr. Gannon Attending Physician: Dr. Howell History of Present Illness Patient is an 86 year old male who presents to [facility] [address] this morning with complaints of palpitations and shortness of breath. Over the last several weeks, patient has been treated for possible viral bronchitis with steroids and and albuterol. He had been evaluated at an Urgent care clinic at that time. No EKG was completed. Pulse was listed as 112 bpm Underlying history includes hypertension and prostate CA. Earlier this year he developed diffuse rash, followed with dermatology, and diagnosed with nummular eczema. Lisinopril was discontinued. Started on prednisone for rash and symptoms improved. he was transitioned to amlodipine for hypertension. Per review of his chart, he is listed as having a TIA in 2018 but detail are unclear. He denies history of cardiovascular disease. He had an echocardiogram in November 2021 which was technically limited, but revealed preserved LVEF at 55%, mild AI, No pulm hypertension nd mildly enlarged ascending aorta (4.3 cm) and aortic root (4.2 cm). He reports worsening SOB over the last 4 weeks. Ongoing cough with orthopnea. He reported significant dyspnea with minimal exertion. No significant improvement with the prednisone. No chest pain reported. Denies dizziness or lightheade dness. He was unaware of palpitations, but due to SOB worsening EMS was summoned to his house this morning. Upon arrival to ER, patient was found to have elevated pulse, with EKG confirming atrial fibrillation with RVR. HS troponin minimally elevated at 23.9. He denied chest pain. No ischemic changes on EKG. BNP minimally elevated. At time of consult, patient starting IV heparin and diltiazem gtt for rate control and stroke prophylaxis. He has ongoing conversational dyspnea. He reports orthopnea over the last few nights. He reports LE edema, which he believes is chronic on the right due to prior knee surgery. He had a fall about 3 years ago after knee surgery when he was unsteady. No recent falls. No history of GI bleeding or significant anemia. Allergies Allergy/AdvReac Type Severity Reaction Status Date / Time No Known Drug Allergies Allergy Mild . Verified 11/16/15 09:58 bee venom protein (honey bee) Allergy Unknown tongue and Verified 11/16/15 09:58 throat sweling Home Medications Medication Instructions Recorded Confirmed Type EPINEPHRINE (EPIPEN) 0.3 mg IM UD PRN ALLERGIC REACTION 04/28/15 History ##0 Lisinopril 10 mg PO QAM ##0 04/28/15 History ASPIRIN (ASPIRIN EC) 81 mg PO DAILY ##0 09/16/17 History Patient History Medical History (Updated 03/09/22 @ 09:27 by JOSH Pathak) (HFpEF) heart failure with preserved ejection fraction H/o Lyme disease "treated around year 1999" HLD (hyperlipidemia) HTN (hypertension) Hyperlipidemia Hypertension Prostate cancer "s/p radical prostatectomy 1994" Pseudogout of hand TIA (transient ischemic attack) Surgical History H/O radical prostatectomy S/P cataract surgery Social History Smoking Status: Never smoker Preferred Language: Martiniquais Feels Safe at Home: Yes Review of Systems Review of Systems: All systems reviewed & are unremarkable except as noted in HPI & below Physical Exam Constitutional: WD/WN, vitals as above + obese Neck: trachea midline, no thyromegaly Respiratory: + tachypneic (with conversational dyspnea) Auscultation: + crackles (bases b/l) Cardiovascular: Rate/Rhythm: + tachycardic and + irregularly irregular Vessels: no JVD Extremities: + edema (1-2+ ankle and pretibial edema, right > left) Gastrointestinal (Abdomen): normal bowel sounds, soft, nontender, no hepatosplenomegaly Skin: no rashes, warm and dry Neurologic: PERRL, EOMI, accommodation nl, no face palsy, no dysarthria Psychiatric: A+Ox3, euthymic affect Results & Data ([facility]) Vital Signs (Past 12 Hours) Vital Signs Temp Pulse Pulse Resp BP BP Pulse Ox 03/09/22 09:58 129 H 20 134/87 94 03/09/22 09:28 112 H 20 134/93 93 03/09/22 07:48 110 H 20 94 03/09/22 08:00 110 H 18 93 03/09/22 06:38 96 H 139/86 03/09/22 06:21 138 H 18 94 03/09/22 06:20 138 H 18 143/103 H 94 03/09/22 06:14 94 03/09/22 06:14 36.6 C 138 H 18 143/103 H 94 03/09/22 06:14 O2 Del Method 03/09/22 09:58 Room Air 03/09/22 09:28 Room Air 03/09/22 07:48 Room Air 03/09/22 08:00 Room Air 03/09/22 06:38 03/09/22 06:21 Room Air 03/09/22 06:20 Room Air 03/09/22 06:14 Room Air 03/09/22 06:14 Room Air 03/09/22 06:14 Room Air Laboratory Results Cardiac Enzymes 03/09/22 03/09/22 Range/Units 06:39 Unknown AST 22 (13-39) U/L Troponin I High Sens 23.9 H (0-20) pg/ml B-Natriuretic Peptide 608 H (0-100) pg/ml Coagulation 03/09/22 03/09/22 03/09/22 Range/Units 06:39 06:46 Unknown PT 11.7 Cancelled (9.0-12.0) Seconds APTT 23.9 Cancelled (21.0-31.0) Seconds B-Natriuretic Peptide 608 H (0-100) pg/ml CBC 03/09/22 Range/Units Unknown WBC 12.44 H (4.8-10.8) K/ul RBC 5.83 (4.63-6.08) M/uL Hgb 17.2 (14.0-18.0) g/dl Hct 50.6 (40.1-51.0) % Plt Count 227 (130-400) K/uL Neut # (Auto) 9.87 H (1.4-6.5) K/uL Lymph # (Auto) 1.31 (1.2-3.4) K/uL [place] # (Auto) 0.99 H (0.24-0.82) K/uL Eos # (Auto) 0.15 (0-0.50) K/uL Baso # (Auto) 0.03 (0-0.2) K/uL Comprehensive Metabolic Panel 03/09/22 Range/Units Unknown Sodium 140 (136-145) mmol/L Potassium 3.7 (3.5-5.1) mmol/L Chloride 106 (98-107) mmol/L Carbon Dioxide 22 (21-32) mmol/L BUN 31 H (6-23) mg/dl Creatinine 1.12 (0.6-1.4) mg/dl Glucose 112 H (70-99(Fasting)) mg/dl Calcium 9.4 (8.5-10.1) mg/dl AST 22 (13-39) U/L ALT 42 (7-52) U/L Alkaline Phosphatase 65 (34-104) U/L Total Protein 6.5 (6.0-8.3) gm/dl Albumin 4.1 (3.4-5.0) gm/dl Intake and Output 03/08/22 03/09/22 03/09/22 22:59 06:59 14:59 Other: Weight 104.8 kg Weight Measurement Method Built in [facility] Diagnostic Findings Echo report pending at time of consult Telemetry reviewed: Atrial fibrillation with rates ranging 120-140 bpm Occ PVC EKG on admission reviewed, 03/09/22: Atrial fibrillation with rapid ventricular response with PVC's LAD Possible old anteroseptal infarct Compared with prior EKG's, afib has replaced NSR. Chest X-Ray 03/09/22 06:06 XR chest 1V portable HISTORY: 86 years-old Male Dyspnea acute shortness of breath COMPARISON: Chest radiographs 10/21/2015 TECHNIQUE: Portable AP view of the chest FINDINGS: Cardiac silhouette is enlarged. Left greater than right pleural effusions with bibasilar consolidative opacities. Pulmonary vascular congestion with interstitial coarsening. No pneumothorax. Degenerative changes of the shoulders and spine. IMPRESSION: 1. Cardiomegaly with pulmonary edema. 2. Small left greater than right pleural effusions. 3. Bibasilar consolidation suggestive of atelectasis versus pneumonia. ACT 112: Negative or not required by law. The above report was generated using voice recognition software. It may contain grammatical, syntax or spelling errors Electronically signed by: Angelito Rosas M.D. 03/09/2022 7:23 AM Outpatient date reviewed- Echo from November 2021: The rhythm is sinus with frequent premature ventricular complexes. The left ventricular endocardium is inadequately assessed. Consider a repeat examination using ultrasonic contrast. The qualitative LV ejection fraction is 55-59% (normal). Poorly visualized apex. Otherwise, no regional wall motion abnormalities. Mild aortic valve regurgitation is present. Mild tricuspid regurgitation is present. There is no evidence of pulmonary hypertension. The aortic root and proximal ascending aorta are mildly enlarged. Medications Administered Medications EPINEPHRINE (EPIPEN) 0.3 mg IM UD PRN ALLERGIC REACTION ##0 04/28/15 [History] Lisinopril 10 mg PO QAM ##0 04/28/15 [History] ASPIRIN (ASPIRIN EC) 81 mg PO DAILY ##0 09/16/17 [History] Home Medications Acetaminophen (Acetaminophen 325 Mg Tab) 650 mg PO Q4H PRN PRN Reason: Pain or Fever Stop: 04/08/22 07:47 Diltiazem HCl 125 mg/ Dextrose 125 mls @ 5 mls/hr IV .Q24H [facility]; Protocol Stop: 04/08/22 10:29 Last Admin: 03/09/22 10:30 Dose: 5 mg/hr, 5 mls/hr Heparin Sodium/Dextrose (Heparin Sodium/Dextrose) 25,000 units in 500 mls @ 29 mls/hr IV .[id number] [facility]; Protocol Stop: 04/08/22 10:44 Last Admin: 03/09/22 10:46 Dose: 1,450 units/hr, 29 mls/hr Nitroglycerin (Nitroglycerin Sl 0.4 Mg/Tab Tab) 0.4 mg SL UD PRN PRN Reason: Chest Pain Stop: 04/08/22 07:47 Polyethylene Glycol (Polyethylene (Miralax) 17 Gm Pack) 17 gm PO DAILY PRN PRN Reason: Constipation Stop: 04/08/22 07:47 (1) CHF (congestive heart failure) Heart failure chronicity: acute Heart failure type: unspecified Qualified Code(s): I50.9 - Heart failure, unspecified
[2022-03-09] MEDS ORDERED: Heparin IV Adult Wt-Based Standard *NO* Bolus Protocol IV SCH (10:15)
[2022-03-09] MEDS: dilTIAZem HCL 125 MG in DEXTROSE 5% 100 ML IV SCH ×2 (10:30→20:34)
[2022-03-09] MEDS: HEPARIN SODIUM/DEXTROSE 25,000 UNITS/500 ML BAG IV SCH (10:46)
[2022-03-09] MEDS ORDERED: FUROSEMIDE 40 MG/4 ML VIAL IV ONE (11:04)
[2022-03-09] MEDS ORDERED: POTASSIUM CHLORIDE CRTAB 20 MEQ TABCR PO ONE (11:05)
[2022-03-09] MEDS ORDERED: FUROSEMIDE INJ 20 MG/2 ML VIAL IV STA (11:38)
[2022-03-09] MEDS ORDERED: cefTRIAXone SODIUM 1,000 MG in DEXTROSE 5% 50 ML IV SCH (11:38)
[2022-03-09] MEDS ORDERED: lisinopril 10 MG TAB PO SCH (12:00)
[2022-03-09] MEDS ORDERED: cefTRIAXone SODIUM 2,000 MG in DEXTROSE 5% 50 ML IV SCH (12:00)
[2022-03-09] MEDS: ASPIRIN 81 MG ECTAB PO SCH (12:39)
--- NOTE | 2022-03-09 13:20 | XRay Report ---
XR chest 1V portable HISTORY: Shortness of breath. COMPARISON: Chest 03/09/2022. FINDINGS: The questionable left apical pleural reflection is likely due to the overlapping rib. No de finite pneumothorax. The heart remains enlarged. Interval improvement in the pulmonary edema and smal l bilateral pleural effusions. Left basilar densities persist. IMPRESSION: 1. Interval improvement in the pulmonary edema and small bilateral pleural effusions. 2. Left basilar densities persist. ACT 112: Negative or not required by law. Electronically signed by: Michi Bowers M.D. 03/09/2022 1:18 PM
[2022-03-09] MEDS ORDERED: METOPROLOL TARTRATE 25 MG TAB PO ONE (13:47)
[2022-03-09 14:00] LABS: Appearance Urine Clear (Clear); Bilirubin Urine Negative (Negative); Blood Urine Negative (Negative); Color Urine Yellow; Glucose Urine UA Negative (Negative); Ketones Urine Negative (Negative); Leukocyte Esterase Urine Negative (Negative); Nitrite Urine Negative (Negative); Protein Urine Negative (Negative); Specific Gravity Urine 1.007 (1.000-1.030); Urobilinogen Urine Negative (Negative)
[2022-03-09] MEDS ORDERED: levoFLOXacin 750 MG TAB PO SCH (14:00)
[2022-03-09 17:09] LABS: Partial Thromboplastin Ratio 2.7
[2022-03-09 17:22] LABS: Partial Thromboplastin Time 73.7 Seconds (21.0-31.0)
[2022-03-09] MEDS: METOPROLOL TARTRATE 25 MG TAB PO SCH (20:35)
--- NOTE | 2022-03-09 21:55 | Electrocardiogram Report ---
Test Reason : Blood Pressure : / mmHG Vent. Rate : 135 BPM Atrial Rate : 138 BPM P-R Int : 000 ms QRS Dur : 086 ms QT Int : 312 ms P-R-T Axes : 000 -47 084 degrees QTc Int : 468 ms Poor data quality, interpretation may be adversely affected Atrial fibrillation with rapid ventricular response with premature ventricular or aberrantly conducte d complexes Left axis deviation Anteroseptal infarct , age undetermined Abnormal ECG When compared with ECG of 01-OCT-2017 12:08, Atrial fibrillation has replaced Sinus rhythm Anteroseptal infarct is now Present Confirmed by Papito Reveles ([id number]) on 03/09/2022 9:54:57 PM Referred By: Confirmed By:Papito Reveles
[2022-03-10 00:23] LABS: Partial Thromboplastin Ratio 4.8
[2022-03-10 00:42] LABS: Partial Thromboplastin Time 130.8 Seconds (21.0-31.0)
[2022-03-10] MEDS: dilTIAZem HCL 125 MG in DEXTROSE 5% 100 ML IV SCH (03:41)
[2022-03-10 06:25] LABS: Hematocrit (blood only) 44.8 % (40.1-51.0); Hemoglobin 15.1 g/dl (14.0-18.0); Mean Corpuscular Hemoglobin 29.3 pg (25.0-34.0); Mean Corpuscular Hgb Conc 33.7 g/dL (32.0-36.0); Mean Platelet Volume 11.6 fL (9.4-12.4); Platelet Count 199 K/uL (130-400); RDW Coefficient of Variation 15.8 % (11.5-14.5); RDW Standard Deviation 49.6 fL (36.4-46.3); Red Blood Count 5.15 M/uL (4.63-6.08)
[2022-03-10 06:50] LABS: Troponin I High Sensitivity 17.2 pg/ml (0-20)
[2022-03-10 07:02] LABS: BUN Creatinine Ratio 28.4 (10-20); C Reactive Protein 1.54 mg/dl (0-0.5); Calcium 8.6 mg/dl (8.5-10.1); Creatinine Clr Calc Pharmacy 46.1 ml/min; Est GFR (Non-African American) 48.3 ml/min; Magnesium 2.3 mg/dl (1.7-2.4); Potassium 3.5 mmol/L (3.5-5.1)
[2022-03-10] MEDS: HEPARIN SODIUM/DEXTROSE 25,000 UNITS/500 ML BAG IV SCH ×3 (07:13→08:24)
[2022-03-10] MEDS: ASPIRIN 81 MG ECTAB PO SCH (08:25)
[2022-03-10] MEDS: SENNA 8.6 MG TAB PO SCH (08:26)
[2022-03-10] MEDS: METOPROLOL TARTRATE 25 MG TAB PO SCH ×2 (08:29→21:56)
[2022-03-10] MEDS ORDERED: ENOXAPARIN INJ 40 MG/0.4 ML SYR SQ SCH (09:00)
[2022-03-10] MEDS ORDERED: amLODIPine BESYLATE 5 MG TAB PO SCH (09:00)
[2022-03-10] MEDS ORDERED: FUROSEMIDE 40 MG/4 ML VIAL IV ONE (09:04)
[2022-03-10] MEDS ORDERED: POTASSIUM CHLORIDE CRTAB 20 MEQ TABCR PO ONE (09:17)
--- NOTE | 2022-03-10 10:46 | Cardiology Progress Note ---
Date of Service March 10, 2022 Assessment & Plan (1) Atrial fibrillation with rapid ventricular response: (2) CHF (congestive heart failure): (3) Elevated troponin I level: (4) HTN (hypertension): Plan Patient admitted for worsening SOB x4 weeks, found to have afib RVR, duration uncertain. Due to likely persistent afib, he developed acute on chronic systolic HF with mildly reduced LVEF at 45% per echo. Rates improved with IV Cardizem and initiation of metoprolol. Stop Cardizem this morning. SOB and volume status improving with IV diuretics. Still mildly hypoxic. Will give additional dose of IV lasix this morning with potassium. He has developed significant hematuria overnight and since brennan. He is asymptomatic. Will stop heparin for now. [id number] score of 6 (age, CHF, HTN, possible prior TIA in 2018) and would benefit from terminal gauger anticoagulation, but will need to re-evaluate once hematuria resolves. Consider Eliquis. Given mildly reduced LV function and wall motion abnormalities, consider outpatient nuclear stress test once volume status and rates improve. Continue ASA, lisinopril, metoprolol Check lipids in AM and consider statin. Case discussed with Dr. Howell. Will Follow. Admission and Anticipated Discharge Date Admission Date: March 09, 2022 Supervising Physician Co-Signing Physician Notes Supervising Physician Attestation: I have personally performed a history and physical examination on the patient. I agree with the physician workforce development assistant's findings and plan as documented with the following additions. Subjective: Patient sitting in bedside chair. Ongoing atrial fibrillation knee 70s to 80s noted. Asymptomatic hypertension noted with systolic blood pressure in the 80s to 90s. Exam: Pulmonary: Mildly decreased breath sounds at bases, no rales rhonchi or wheezing Cardiovascular regular rhythm, 1/6 systolic murmur, 1-2+ lower extremity edema as noted above Data: PTT 74 seconds Potassium 3.5 Creatinine 1.34 Assessment and Plan: Newly recognized atrial fibrillation Heart failure with (mildly) reduced ejection fraction -Patient developed hematuria, likely due to having pulled on his Brennan catheter. This is since been removed. Patient reports to me that his blood and near has improved in the interim, but not yet resolved. Neurology input noted and appreciated -Remain off anticoagulation for now due to hematuria, future considerations include Eliquis 5 mg twice daily. -Diltiazem infusion discontinued. -Continue metoprolol with hold parameters. -Prior to hospital treatment lisinopril and amlodipine on hold. -Received another 40 mg of furosemide a.m. of 03/10, holding further diuretics pending reassessment of blood pressure and renal function tomorrow. DVT prophylaxis: -Anticoagulation on hold due to hematuria. Daily reassessment recommended Bret Howell DO Subjective Patient resting comfortably in chair. Reports his SOB and cough not at baseline, but improving from admission. Unaware of palpitations or tachypalpitations. Denies dizziness. Significant hematuria noted since brennan placement. Cardizem stopped this morning. HR's currently controlled in the 70's with persistent afib. He denies chest pain. Review of Systems Review of Systems: All systems reviewed & are unremarkable except as noted in HPI & below Physical Exam Constitutional: WD/WN, vitals as above + obese Neck: trachea midline, no thyromegaly Respiratory: normal respiratory effort Auscultation: + crackles (bases b/l) Cardiovascular: Rate/Rhythm: + irregularly irregular Vessels: no JVD Extremities: + edema (1-2+ ankle and pretibial edema, right > left) Gastrointestinal (Abdomen): normal bowel sounds, soft, nontender, no hepatosplenomegaly Skin: no rashes, warm and dry Neurologic: PERRL, EOMI, accommodation nl, no face palsy, no dysarthria Psychiatric: A+Ox3, euthymic affect Results & Data ([facility]) Vital Signs (Past 12 Hours) Vital Signs Temp Pulse Resp BP Pulse Ox O2 Del Method O2 Flow Rate 03/10/22 07:17 36.7 C 65 18 90/53 L 91 Nasal Cannula 4 03/10/22 04:02 36.4 C L 71 20 99/70 L 93 Nasal Cannula 4.0 03/10/22 00:02 36.4 C L 63 22 113/73 92 Nasal Cannula 2 Laboratory Results Cardiac Enzymes 03/09/22 03/09/22 03/09/22 Range/Units 12:38 17:30 23:04 Troponin I High Sens 23.1 H 23.8 H 20.9 H (0-20) pg/ml 03/10/22 Range/Units 05:42 Troponin I High Sens 17.2 (0-20) pg/ml Coagulation 03/09/22 03/09/22 Range/Units 16:32 23:04 APTT 73.7 H* 130.8 H* (21.0-31.0) Seconds CBC 03/10/22 Range/Units 05:42 WBC 15.40 H (4.8-10.8) K/ul RBC 5.15 (4.63-6.08) M/uL Hgb 15.1 (14.0-18.0) g/dl Hct 44.8 (40.1-51.0) % Plt Count 199 (130-400) K/uL Comprehensive Metabolic Panel 03/10/22 Range/Units 05:42 Sodium 138 (136-145) mmol/L Potassium 3.5 (3.5-5.1) mmol/L Chloride 105 (98-107) mmol/L Carbon Dioxide 22 (21-32) mmol/L BUN 38 H (6-23) mg/dl Creatinine 1.34 (0.6-1.4) mg/dl Glucose 116 H (70-99(Fasting)) mg/dl Calcium 8.6 (8.5-10.1) mg/dl Intake and Output 03/09/22 03/10/22 03/10/22 22:59 06:59 14:59 Intake Total 349.15 / 851.750 415.35 / 851.750 80.75 / 80.75 Output Total 250 / 951 51 / 951 Balance 99.15 / -99.250 364.35 / -99.250 80.75 / 80.75 Intake: IV 299.15 / 801.750 415.35 / 801.750 80.75 / 80.75 Heparin Sodium/Dextrose 25,000 191.4 / 500.0 308.6 / 500.0 units In 500 ml @ 1,350 UNITS/ HR 27 mls/hr IV .[id number] [facility] Rx #:[id number] dilTIAZem HCL 125 mg In 107.75 / 231.750 106.75 / 231.750 80.75 / 80.75 Dextrose 5% 100 ml @ 15 MG/HR 15 mls/hr IV .[id number] [facility] Rx#: [id number] Oral 50 / 50 0 / 50 Output: Urine Amount (Catheter) 250 / 600 50 / 600 Coude 250 / 600 50 / 600 # Bowel Movements Other: Weight 100.6 kg 99.2 kg Weight Measurement Method Built in [facility] Built in [facility] Diagnostic Findings Telemetry reviewed: persistent afib, controlled rates currently 70's. Echo report reviewed dated 03/09/22: Afib with RVR was present during echo. Focal hypokinesis to akinesis of the basal posterior segement, basal and mid inferoseptum, and basal and mid inferior wall with borderline to mild hypokinesis otherwise. LV systolic function is mildly reduced. LVEF 40-45%. Moderate MR. Mitral regurg jet is eccentric and anteriorly directed, likely related to the restriction of the posterior mitral valve leaftlet from the inferior wall motion abnormality. Mild TR Doppler findings do not suggest pulm hypertension. Images are not sufficient to allow measurement of the aortic root or prox ascending aorta. Medications Administered Current Inpatient Medications Acetaminophen (Acetaminophen 325 Mg Tab) 650 mg PO Q4H PRN PRN Reason: Pain or Fever Stop: 04/08/22 07:47 Aspirin (Aspirin 81 Mg Ectab) 81 mg PO DAILY [facility] Stop: 04/08/22 11:59 Last Admin: 03/10/22 08:25 Dose: 81 mg Heparin Sodium/Dextrose (Heparin Sodium/Dextrose) 25,000 units in 500 mls @ 20 mls/hr IV .Q24H [facility]; Protocol Stop: 04/08/22 10:44 Last Admin: 03/10/22 08:24 Dose: Not Given Metoprolol Tartrate (Metoprolol Tartrate 25 Mg Tab) 25 mg PO BID [facility] Stop: 04/08/22 20:59 Last Admin: 03/10/22 08:29 Dose: 25 mg Nitroglycerin (Nitroglycerin Sl 0.4 Mg/Tab Tab) 0.4 mg SL UD PRN PRN Reason: Chest Pain Stop: 04/08/22 07:47 Polyethylene Glycol (Polyethylene (Miralax) 17 Gm Pack) 17 gm PO DAILY PRN PRN Reason: Constipation Stop: 04/08/22 07:47 Sennosides (Senna 8.6 Mg Tab) 8.6 mg PO QAM [facility] Stop: 04/09/22 08:59 Last Admin: 03/10/22 08:26 Dose: 8.6 mg (1) CHF (congestive heart failure) Heart failure chronicity: acute Heart failure type: unspecified Qualified Code(s): I50.9 - Heart failure, unspecified
--- NOTE | 2022-03-10 12:00 | Hospitalist Progress Note ---
Date of Service March 10, 2022 Assessment & Plan (1) Atrial fibrillation with rapid ventricular response: (2) (HFpEF) heart failure with preserved ejection fraction: (3) HTN (hypertension): (4) HLD (hyperlipidemia): Plan Mr. Uli Gregory is an 86 year old male who presented to the [facility] with SOB over the past few weeks, on and off, with more orthopnea this morning, along with feelings of 'his heart racing'. Three weeks ago he was seen in urgent care and treated for a URI with Prednisone (no abx). + Bilateral LE swelling. CXR L > R pleural effusions and atelectasis vs CAP. Recently was treated as an OPT for nummular eczema and was switched from Lisinopril to Amlodipine in case the ACEI was a contributor to his rash. BNP 608 and most recent ECHO was from 11/2021: EF 55-60% with mild TR but no pHTN. Additional PMH includes: HLD, HTN, prostate ca, H/O TIA and H/O Lymes Disease. 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 AF with RVR: New onset; confirmed on EKG Received loading dose of Cardizem in ED s/p cardizem ggt - no stopped - started on po metoprolol 03/09/2022 with good response Cards following - appreciate recs PCU admit for new onset AF and gtt management heparin drip stopped due to hematuria - will need AC once resolution of hematuria NPO for now HFpEF: Latest ECHO: 11/2021: EF 55-60%; mild TR, no pHTN Repeat ECHO with mildly reduced EF 45% 02/2022, could be in setting of new Afib BNP 608 Troponin 23.9 continue IV lasix for now given volume status Cards consult Monitor I/O Hematuria - could be due to traumatic brennan as patient was pulling at this overnight and had clear urine yesterday - also in setting of heparin drip - now on hold - resistance on flushing brennan and reinsertion - urology consulted for hematuria and brennan resistance - monitor for resolution of hematuria Pleural Effusions: Had a cough and URI over past few weeks; completed a Prednisone taper pack Leukocytosis: WBC 12.44 CXR Atelectasis vs CAP will monitor off abx forn ow - leukocytosis increasing but no other signs of symptoms of infection - will monitor Sputum culture pending Procal negative COVID-19 swab negative HTN: Goal SBP < 140 Recently Lisinopril switched to Amlodipine d/t nummular eczema. Continue Amlodipine with holding parameters HLD: Diet controlled 03/16; LDL 82, HDL 53; TG 97 Nummular Eczema: Resolving; some rash noted on left forearm and back Takes Temovate create; continue Disposition: PCP: Dr. Tinoco Code: Full Point of Contact: Loreto, daughter [phone] Plan to return home post DC Admission and Anticipated Discharge Date Admission Date: March 09, 2022 Subjective Patient presenting with several weeks of progressive shortness of breath and orthopnea, denies chest pain or palpitations, n/v, LOC, light headedness, dizziness. Found to be in Afib with RVR and pulmonary congestion. Initially responded to diltiazem IV in ED. On RA, trace LE edema, lungs CTAB, irregularly irregular rhythm on exam and afib on ECG with rates in 120-130s. Started on dilt drip and heparin drip, added po metoprolol and stopped dilt with rate control. Had hematuria in rbennan 03/10/2022, heparin stopped, brennan removed, resistance reinserting, urology consulted. Will likely continue with po metoprolol and start on Eliquis once hematuria resolves due to high [id number] score. The patient reports some improvement in his breathing this morning but still short of breath. Denies chest pain, cough, fever or chills, n/v/d, abdominal pain. Review of Systems Review of Systems: All systems reviewed & are unremarkable except as noted in Subjective Physical Exam Physical Exam: Neuro: AAOx4, PERRLA, no aphagia, memory changes, CNII-XII grossly intact HEENT: head normocephalic, moist mucus membranes CV: S1/S2, (-) M/G/R, (+) 2 /L LE edema to lower calf, cap refill < 3 seconds Resp: Lungs CTA in all dowd. On 2L NC GI: Abdomen S/NT/ND, Ax4 bowel sounds, (-) CVA tenderness Musculoskeletal: 5/5 B/L UE strength, 5/5 B/L LE strength. No gait disturbance Skin: (+) rashes, not new , (-) erythema. Psych: euthymic mood Results & Data Results & Data ([facility]) Vital Signs (Past 12 Hours) Vital Signs Temp Pulse Resp BP Pulse Ox O2 Del Method O2 Flow Rate 03/10/22 11:25 36.4 C L 80 17 89/60 L 95 Room Air 03/10/22 07:17 36.7 C 65 18 90/53 L 91 Nasal Cannula 4 03/10/22 04:02 36.4 C L 71 20 99/70 L 93 Nasal Cannula 4.0 03/10/22 00:02 36.4 C L 63 22 113/73 92 Nasal Cannula 2 Laboratory Results Short CBC 03/10/22 Range/Units 05:42 WBC 15.40 H (4.8-10.8) K/ul Hgb 15.1 (14.0-18.0) g/dl Hct 44.8 (40.1-51.0) % Plt Count 199 (130-400) K/uL BMP 03/10/22 05:42 Sodium 138 Potassium 3.5 Chloride 105 Carbon Dioxide 22 BUN 38 H Creatinine 1.34 Glucose 116 H Calcium 8.6 Urine 03/09/22 Range/Units 13:30 Urine Color Yellow Urine Appearance Clear (Clear) Urine pH 7.0 (4.5-7.5) Ur Specific [place] 1.007 (1.000-1.030) Urine Protein Negative (Negative) Urine Glucose (UA) Negative (Negative) Diagnostic Findings reviewed Medications Administered Current Inpatient Medications Acetaminophen (Acetaminophen 325 Mg Tab) 650 mg PO Q4H PRN PRN Reason: Pain or Fever Stop: 04/08/22 07:47 Aspirin (Aspirin 81 Mg Ectab) 81 mg PO DAILY [facility] Stop: 04/08/22 11:59 Last Admin: 03/10/22 08:25 Dose: 81 mg Heparin Sodium/Dextrose (Heparin Sodium/Dextrose) 25,000 units in 500 mls @ 0 mls/hr IV .Q0M [facility]; Protocol Stop: 04/08/22 10:44 Last Titration: 03/10/22 11:07 Dose: 0 units/hr, 0 mls/hr Metoprolol Tartrate (Metoprolol Tartrate 25 Mg Tab) 25 mg PO BID [facility] Stop: 04/08/22 20:59 Last Admin: 03/10/22 08:29 Dose: 25 mg Nitroglycerin (Nitroglycerin Sl 0.4 Mg/Tab Tab) 0.4 mg SL UD PRN PRN Reason: Chest Pain Stop: 04/08/22 07:47 Polyethylene Glycol (Polyethylene (Miralax) 17 Gm Pack) 17 gm PO DAILY PRN PRN Reason: Constipation Stop: 04/08/22 07:47 Sennosides (Senna 8.6 Mg Tab) 8.6 mg PO [facility] Stop: 04/09/22 08:59 Last Admin: 03/10/22 08:26 Dose: 8.6 mg
--- NOTE | 2022-03-10 12:22 | Urology Consultation ---
Date of Consultation March 10, 2022 Assessment & Plan (1) Prostate cancer: (2) Atrial fibrillation with rapid ventricular response: (3) Gross hematuria: Plan 86-year-old gentleman admitted with A. fib with RVRnow rate controlled and anticoagulated Also with a history of radical prostatectomy (RRP), 1994 Likely has some level of bladder neck contracture as the nurse relays a history of a difficult catheterization His urine was clear and draining appropriately until there was likely some Hercules trauma last night Advancement of the catheter was very challenging He currently has only 200 cc in his bladder and is not uncomfortable I favor continued observation rather than rushing to place another catheter now If he develops true retention with discomfort and distended bladder we can catheterize him and dilate the bladder neck if necessary If he can void or at least leak into a diaper, simple observation would certainly be best in the short-term History of Present Illness Attending Physician: Chester Gannon MD History of Present Illness 86-year-old gentleman admitted with A. fib with RVR Now rate controlled Developed hematuria overnight in the setting of anticoagulation and an indwelling Hercules catheter His urine had been clear but there is suspicion that he likely pulled on the catheter during some lead evening confusion Nursing staff attempted to salvage the catheter but it was clotted and beyond salvage The catheter has now been removed and he has voided only small amounts since that time He denies any discomfort or feeling of fullness His most recent bladder scan was only around 200 cc Creatinine 1.3 Allergies Allergy/AdvReac Type Severity Reaction Status Date / Time No Known Drug Allergies Allergy Mild . Verified 03/09/22 15:18 bee venom protein (honey bee) Allergy Unknown tongue and Verified 03/09/22 15:18 throat sweling Home Medications Medication Instructions Recorded Confirmed Type amlodipine 5 mg tablet 5 mg PO DAILY 03/09/22 03/09/22 History aspirin 81 mg tablet,delayed 81 mg PO DAILY 03/09/22 03/09/22 History release clobetasol 0.05 % topical cream 1 applic topical BID PRN Flare ups 03/09/22 03/09/22 History epinephrine 0.3 mg/0.3 mL 0.3 mg IM .SEVERE REACTION 03/09/22 03/09/22 History injection, auto-injector sennosides 8.6 mg tablet (senna) 8.6 mg PO DAILY PRN Constipation 03/09/22 03/09/22 History apixaban 5 mg tablet (Eliquis) 5 mg PO BID #60 tabs 03/10/22 Rx Patient History Medical History (HFpEF) heart failure with preserved ejection fraction H/o Lyme disease "treated around year 1999" HLD (hyperlipidemia) HTN (hypertension) Hyperlipidemia Hypertension Prostate cancer "s/p radical prostatectomy 1994" Pseudogout of hand TIA (transient ischemic attack) Surgical History H/O radical prostatectomy S/P cataract surgery Social History Smoking Status: Never smoker Hx Alcohol Use: No Hx Substance Use: No Preferred Language: [place]al[place] Communication Ability: Effective Thoracic Medicine Physician Required: No Beliefs That Will Affect Care: None Current Living Situation: Family Other Information That Helps Us Care for You: No Feels Safe at Home: Yes Safety Concerns: Feels Safe At This Time Assistive Devices: Denture - Upper, Denture - Lower and Glasses Review of Systems Review of Systems: Hematuria but no dysuria Constitutional: no fever, no chills and no fatigue Eyes: no worsening vision Ear, Nose, Mouth, Throat: no facial pain and no pain with swallowing Respiratory: no cough and no dyspnea Cardiovascular: no chest pain and no palpitations Gastrointestinal: no abdominal pain, no nausea and no vomiting Musculoskeletal: no back pain Integumentary: no rash and no urticaria Neurologic: no gait abnormality and no unsteadiness Psychiatric: no behavioral changes and no depression Endocrine: no fatigue Physical Exam 2 Constitutional: well developed and well nourished Respiratory: normal respiratory effort; no respiratory distress and does not use accessory muscles Cardiovascular: Rate/Rhythm: regular rate Vessels: radial pulses present Gastrointestinal (Abdomen): Inspection/Auscultation: abdomen normal to inspection Percussion/Palpation: abdomen soft; abdomen nontender and no guarding Musculoskeletal: Head/Neck/Chest: normocephalic and head atraumatic Extremities: extremities normal to inspection Skin: Trauma: no evidence of skin trauma (Some mild ecchymosis n) Neurologic: awake; not obtunded Speech / Cognition: normal speech Motor/Sensory: no tremor Psychiatric: Orientation: alert and oriented x 3 Genitourinary: no CVA tenderness Lymphatic: no lymphadenopathy Results & Data ([facility]) Vital Signs (Past 12 Hours) Vital Signs Temp Pulse Resp BP Pulse Ox O2 Del Method O2 Flow Rate 03/10/22 11:25 36.4 C L 80 17 89/60 L 95 Room Air 03/10/22 07:17 36.7 C 65 18 90/53 L 91 Nasal Cannula 4 03/10/22 04:02 36.4 C L 71 20 99/70 L 93 Nasal Cannula 4.0 PG Care Time/CCT Total # of Minutes Spent Total Time Spent with Patient: Total time spent is greater than 50% in coordination of care (as documented) at patient's floor/unit and/or counseling patient: Coding Level of Care Code 95991 Inpt Consult Level 4 Diagnoses Prostate cancer C61 Atrial fibrillation with rapid ventricular response I48.91 Gross hematuria R31.0
[2022-03-10 12:31] LABS: Partial Thromboplastin Ratio 2.7
[2022-03-10 13:13] LABS: Chol HDL Ratio 2.2 (0-5)
--- NOTE | 2022-03-10 15:50 | Electrocardiogram Report ---
Test Reason : Blood Pressure : / mmHG Vent. Rate : 068 BPM Atrial Rate : 227 BPM P-R Int : 000 ms QRS Dur : 086 ms QT Int : 436 ms P-R-T Axes : 000 -01 206 degrees QTc Int : 463 ms Atrial fibrillation Moderate voltage criteria for LVH, may be normal variant Cannot rule out Septal infarct (cited on or before 09-MAR-2022) T wave abnormality, consider inferolateral ischemia Abnormal ECG When compared with ECG of 09-MAR-2022 06:09, Vent. rate has decreased BY 67 BPM QRS axis Shifted right Confirmed by Tayo Burton ([id number]) on 03/10/2022 3:50:00 PM Referred By: REFERRED SELF Confirmed By:Tayo Burton
[2022-03-10] MEDS ORDERED: LORazepam 0.5 MG TAB PO STA ×2 (19:23→21:36)
[2022-03-11 06:41] LABS: Basophils # (auto) 0.02 K/uL (0-0.2); Basophils % (auto) 0.2 %; Eosinophils # (auto) 0.17 K/uL (0-0.50); Eosinophils % (auto) 1.3 %; Hemoglobin 15.3 g/dl (14.0-18.0); Immature Granulocytes # (auto) 0.06 K/uL (0.00-0.02); Immature Granulocytes % (auto) 0.5 %; Lymphocytes # (auto) 1.44 K/uL (1.2-3.4); Lymphocytes % (auto) 11.3 %; Mean Corpuscular Hgb Conc 32.6 g/dL (32.0-36.0); Mean Platelet Volume 11.4 fL (9.4-12.4); Monocytes # (auto) 1.14 K/uL (0.24-0.82); Monocytes % (auto) 8.9 %; Neutrophils # (auto) 9.97 K/uL (1.4-6.5); Neutrophils % (auto) 77.8 %; Platelet Count 182 K/uL (130-400); RDW Coefficient of Variation 15.9 % (11.5-14.5); RDW Standard Deviation 51.5 fL (36.4-46.3); Red Blood Count 5.28 M/uL (4.63-6.08)
[2022-03-11 07:04] LABS: BUN Creatinine Ratio 31.2 (10-20); Calcium 8.7 mg/dl (8.5-10.1); Est GFR (African American) 52.6 ml/min; Est GFR (Non-African American) 45.4 ml/min; Magnesium 2.4 mg/dl (1.7-2.4); Phosphorus 3.1 mg/dl (2.5-4.9); Potassium 4.2 mmol/L (3.5-5.1)
[2022-03-11] MEDS: SENNA 8.6 MG TAB PO SCH (09:08)
[2022-03-11] MEDS: ASPIRIN 81 MG ECTAB PO SCH (09:08)
[2022-03-11] MEDS: METOPROLOL TARTRATE 25 MG TAB PO SCH ×3 (09:08→20:38)
--- NOTE | 2022-03-11 09:08 | Urology Progress Note ---
Date of Service March 11, 2022 Assessment & Plan (1) Gross hematuria: Plan Plan to continue spontaneous voiding/incontinence barring development of symptoms or other clinical change If no urine output over an extended period of time, perform bladder scan Try to avoid catheterization or intervention unless absolutely necessary He likely has some level of bladder neck contracture from his prior radical prostatectomy and this may require dilation and worsen his incontinenceif we can avoid that, it would be best Admission and Anticipated Discharge Date Admission Date: March 09, 2022 Subjective A bit confused this morning Reports that he was incontinent overnight but has also been voiding into the urinal in the toiletdoes not believe it is particularly bloody -however I am not certain he is a perfect historian in this regard Abdomen is not distended nor tender He denies feeling a sense of bladder fullness His creatinine is up slightly today at 1.41 His hemoglobin is steady Physical Exam Physical Exam: Comfortable appearing Abdomen soft Results & Data ([facility]) Vital Signs (Past 12 Hours) Vital Signs Temp Pulse Pulse Resp BP Pulse Ox O2 Del Method 03/11/22 07:30 36.4 C L 65 17 114/91 93 Room Air 03/11/22 02:37 36.5 C 107 H 20 82/61 L 93 Room Air 03/10/22 23:35 115 H 03/10/22 22:42 36.5 C 105 H 20 97/72 L 94 Room Air 03/10/22 21:55 99 H 108/58 L PG Care Time/CCT Total # of Minutes Spent Total Time Spent with Patient: Total time spent is greater than 50% in coordination of care (as documented) at patient's floor/unit and/or counseling patient: Coding Level of Care Code 52905 Subseq Hosp Care Lvl 3 Diagnoses Gross hematuria R31.0
--- NOTE | 2022-03-11 12:12 | Hospitalist Progress Note ---
Date of Service March 11, 2022 Assessment & Plan (1) Atrial fibrillation with rapid ventricular response: (2) (HFpEF) heart failure with preserved ejection fraction: (3) HTN (hypertension): (4) HLD (hyperlipidemia): Plan Mr. Uli Gregory is an 86 year old male who presented to the [facility] with SOB over the past few weeks, on and off, with more orthopnea this morning, along with feelings of 'his heart racing'. Three weeks ago he was seen in urgent care and treated for a URI with Prednisone (no abx). + Bilateral LE swelling. CXR L > R pleural effusions and atelectasis vs CAP. Recently was treated as an OPT for nummular eczema and was switched from Lisinopril to Amlodipine in case the ACEI was a contributor to his rash. BNP 608 and most recent ECHO was from 11/2021: EF 55-60% with mild TR but no pHTN. Additional PMH includes: HLD, HTN, prostate ca, H/O TIA and H/O Lymes Disease. 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 AF with RVR: New onset; confirmed on EKG Received loading dose of Cardizem in ED s/p cardizem ggt - no stopped - started on po metoprolol 03/09/2022 with good response Cards following - appreciate recs PCU admit for new onset AF and gtt management - can likely be downgraded to med/surg with telemetry if remains stable today heparin drip stopped due to hematuria - will need AC once resolution of hematuria HFpEF: Latest ECHO: 11/2021: EF 55-60%; mild TR, no pHTN Repeat ECHO with mildly reduced EF 45% 02/2022, could be in setting of new Afib BNP 608 Troponin 23.9 continue IV lasix for now given volume status Cards consult Monitor I/O Hematuria - could be due to traumatic brennan as patient was pulling at this overnight and had clear urine yesterday - also in setting of heparin drip - now on hold - resistance on flushing brennan and reinsertion - urology consulted for hematuria and brennan resistance - monitor for resolution of hematuria Pleural Effusions: Had a cough and URI over past few weeks; completed a Prednisone taper pack Leukocytosis: WBC 12.44 CXR Atelectasis vs CAP will monitor off abx for now - leukocytosis now trending down and no other signs of symptoms of infection - will monitor Sputum culture pending Procal negative COVID-19 swab negative HTN: Goal SBP < 140 Recently Lisinopril switched to Amlodipine d/t nummular eczema. Continue Amlodipine with holding parameters HLD: Diet controlled 03/16; LDL 82, HDL 53; TG 97 Nummular Eczema: Resolving; some rash noted on left forearm and back Takes Temovate create; continue Disposition: PCP: Dr. Tinoco Code: Full Point of Contact: Loreto daughter [phone] Plan to return home post DC Admission and Anticipated Discharge Date Admission Date: March 09, 2022 Subjective Patient presenting with several weeks of progressive shortness of breath and orthopnea, denies chest pain or palpitations, n/v, LOC, light headedness, dizziness. Found to be in Afib with RVR and pulmonary congestion. Initially responded to diltiazem IV in ED. On RA, trace LE edema, lungs CTAB, irregularly irregular rhythm on exam and afib on ECG with rates in 120-130s. Started on dilt drip and heparin drip, added po metoprolol and stopped dilt with rate control. Had hematuria in brennan 03/10/2022, heparin stopped, brennan removed, resistance reinserting, urology consulted. Will likely continue with po metoprolol and start on Eliquis once hematuria resolves due to high [id number] score. The patient reports some improvement in his breathing this morning but still short of breath at times. Denies chest pain, cough, fever or chills, n/v/d, abdominal pain. Reports urine is more yellow today. Review of Systems Review of Systems: All systems reviewed & are unremarkable except as noted in Subjective Physical Exam Physical Exam: Neuro: AAOx4, PERRLA, no aphagia, memory changes, CNII-XII grossly intact HEENT: head normocephalic, moist mucus membranes CV: S1/S2, (-) M/G/R, (+) 2 /L LE edema to lower calf, cap refill < 3 seconds Resp: Lungs CTA in all dowd. on RA GI: Abdomen S/NT/ND, Ax4 bowel sounds, (-) CVA tenderness Musculoskeletal: 5/5 B/L UE strength, 5/5 B/L LE strength. No gait disturbance Skin: (+) rashes, not new , (-) erythema. Psych: euthymic mood Results & Data Results & Data ([facility]) Vital Signs (Past 12 Hours) Vital Signs Temp Pulse Resp BP Pulse Ox O2 Del Method 03/11/22 11:19 36.4 C L 102 H 17 96/77 L 96 Room Air 03/11/22 07:30 36.4 C L 65 17 114/91 93 Room Air 03/11/22 02:37 36.5 C 107 H 20 82/61 L 93 Room Air Laboratory Results Short CBC 03/11/22 Range/Units 06:01 WBC 12.80 H (4.8-10.8) K/ul Hgb 15.3 (14.0-18.0) g/dl Hct 47.0 (40.1-51.0) % Plt Count 182 (130-400) K/uL BMP 03/11/22 06:01 Sodium 137 Potassium 4.2 Chloride 105 Carbon Dioxide 25 BUN 44 H Creatinine 1.41 H Glucose 83 Calcium 8.7 Diagnostic Findings reviewed Medications Administered Current Inpatient Medications Acetaminophen (Acetaminophen 325 Mg Tab) 650 mg PO Q4H PRN PRN Reason: Pain or Fever Stop: 04/08/22 07:47 Aspirin (Aspirin 81 Mg Ectab) 81 mg PO DAILY [facility] Stop: 04/08/22 11:59 Last Admin: 03/11/22 09:08 Dose: 81 mg Heparin Sodium/Dextrose (Heparin Sodium/Dextrose) 25,000 units in 500 mls @ 0 mls/hr IV .Q0M [facility]; Protocol Stop: 04/08/22 10:44 Last Titration: 03/10/22 11:07 Dose: 0 units/hr, 0 mls/hr Metoprolol Tartrate (Metoprolol Tartrate 25 Mg Tab) 25 mg PO BID [facility] Stop: 04/08/22 20:59 Last Admin: 03/11/22 09:08 Dose: 25 mg Nitroglycerin (Nitroglycerin Sl 0.4 Mg/Tab Tab) 0.4 mg SL UD PRN PRN Reason: Chest Pain Stop: 04/08/22 07:47 Polyethylene Glycol (Polyethylene (Miralax) 17 Gm Pack) 17 gm PO DAILY PRN PRN Reason: Constipation Stop: 04/08/22 07:47 Sennosides (Senna 8.6 Mg Tab) 8.6 mg PO [facility] Stop: 04/09/22 08:59 Last Admin: 03/11/22 09:08 Dose: 8.6 mg
--- NOTE | 2022-03-11 12:24 | Cardiology Progress Note ---
Date of Service March 11, 2022 Assessment & Plan (1) Atrial fibrillation with rapid ventricular response: (2) CHF (congestive heart failure): (3) Elevated troponin I level: (4) HTN (hypertension): Plan Patient admitted with 4 weeks of ongoing shortness of breath diagnosed with atrial fibrillation duration unknown. Developed acute on chronic systolic HF with mildly reduced LVEF at 45% per echo. Intravenous Cardizem discontinued 02/28/2022. Heart rate remains borderline e levated. Recommend titration of metoprolol tartrate to 25 mg 3 times daily. Volume status improved with IV diuretics. No longer hypoxic. Supplemental oxygen discontinued. Creatinine trending upward to 1.41. Diuretic therapy on hold today. Significant hematuria occurred overnight 03/09-03/10. Likely secondary to traumatic Hercules. IV heparin on hold. Mild hematuria reported this AM. We will continue to hold anticoagulation today and monitor for any signs/symptoms of recurrent hematuria. [id number] score of 6 (age, CHF, HTN, possible prior TIA in 2018) and would benefit from intermediate frame tender anticoagulation. Continue to monitor. Consider Eliquis. Given mildly reduced LV function and wall motion abnormalities, consider outpatient nuclear stress test once volume status and rates improve. Continue ASA, and lisinopril. LDL 47 mg/DL. No indication for statin therapy currently. Admission and Anticipated Discharge Date Admission Date: March 09, 2022 Subjective Patient seen and examined at the bedside. Notes mild hematuria this morning. Denies chest pain or palpitations. Telemetry reveals atrial fibrillation with heart rate averaging approximate 100 bpm. Intravenous diltiazem discontinued. Anticoagulation on hold due to hematuria. Review of Systems Review of Systems: All systems reviewed & are unremarkable except as noted in Subjective Physical Exam Constitutional: well nourished; no acute distress Respiratory: no respiratory distress, no labored breathing and no retractions Auscultation: no crackles, no rales, no rhonchi and no wheezes Cardiovascular: Rate/Rhythm: + tachycardic and + irregularly irregular Heart Sounds: normal S1 and normal S2; no murmur Vessels: radial pulses present; no JVD Extremities: no edema Gastrointestinal (Abdomen): Inspection/Auscultation: abdomen normal to inspection and normal bowel sounds; abdomen not distended Percussion/Palpation: abdomen soft; abdomen nontender, no guarding and abdomen not rigid Neurologic: CN's II-XI intact bilaterally and moves all extremities; no focal motor deficits Results & Data ([facility]) Vital Signs (Past 12 Hours) Vital Signs Temp Pulse Resp BP Pulse Ox O2 Del Method 03/11/22 11:19 36.4 C L 102 H 17 96/77 L 96 Room Air 03/11/22 07:30 36.4 C L 65 17 114/91 93 Room Air 03/11/22 02:37 36.5 C 107 H 20 82/61 L 93 Room Air (1) CHF (congestive heart failure) Heart failure chronicity: acute Heart failure type: unspecified Qualified Code(s): I50.9 - Heart failure, unspecified
[2022-03-11] MEDS ORDERED: LORazepam 0.5 MG TAB PO ONE (21:00)
[2022-03-12 06:28] LABS: Basophils # (auto) 0.05 K/uL (0-0.2); Basophils % (auto) 0.3 %; Eosinophils # (auto) 0.26 K/uL (0-0.50); Eosinophils % (auto) 1.8 %; Hematocrit (blood only) 49.9 % (40.1-51.0); Hemoglobin 16.8 g/dl (14.0-18.0); Immature Granulocytes # (auto) 0.08 K/uL (0.00-0.02); Immature Granulocytes % (auto) 0.5 %; Lymphocytes # (auto) 2.12 K/uL (1.2-3.4); Lymphocytes % (auto) 14.6 %; Mean Corpuscular Hemoglobin 29.4 pg (25.0-34.0); Mean Corpuscular Hgb Conc 33.7 g/dL (32.0-36.0); Mean Corpuscular Volume 87.4 fL (80.0-100.0); Mean Platelet Volume 11.6 fL (9.4-12.4); Monocytes # (auto) 1.13 K/uL (0.24-0.82); Monocytes % (auto) 7.8 %; Neutrophils # (auto) 10.93 K/uL (1.4-6.5); Platelet Count 188 K/uL (130-400); RDW Coefficient of Variation 16.3 % (11.5-14.5); Red Blood Count 5.71 M/uL (4.63-6.08); White Blood Count 14.57 K/ul (4.8-10.8)
[2022-03-12 06:44] LABS: INR 1.1 (0.9-1.1); Prothrombin Time 11.9 Seconds (9.0-12.0)
[2022-03-12 07:02] LABS: BUN Creatinine Ratio 31.7 (10-20); Calcium 9.1 mg/dl (8.5-10.1); Creatinine Clr Calc Pharmacy 50.5 ml/min; Est GFR (African American) 62.1 ml/min; Est GFR (Non-African American) 53.6 ml/min; Magnesium 2.5 mg/dl (1.7-2.4); Phosphorus 2.8 mg/dl (2.5-4.9); Potassium 4.6 mmol/L (3.5-5.1)
[2022-03-12] MEDS: METOPROLOL TARTRATE 25 MG TAB PO SCH ×3 (07:48→20:50)
[2022-03-12] MEDS: ASPIRIN 81 MG ECTAB PO SCH (07:48)
[2022-03-12] MEDS: SENNA 8.6 MG TAB PO SCH (08:02)
[2022-03-12 08:12] LABS: Appearance Urine Clear (Clear); Bacteria Urine Automated Negative (Negative); Bilirubin Urine Negative (Negative); Blood Urine 2+ (Negative); Color Urine Yellow; Glucose Urine UA Negative (Negative); Ketones Urine 1+ (Negative); Leukocyte Esterase Urine Trace (Negative); Nitrite Urine Negative (Negative); Protein Urine Trace (Negative); RBC Urine Automated >30 /hpf (0-4); Specific Gravity Urine 1.026 (1.000-1.030); Urobilinogen Urine Negative (Negative); pH Urine 5.5 (4.5-7.5)
--- NOTE | 2022-03-12 08:45 | XRay Report ---
XR chest 1V portable CLINICAL HISTORY: shortness of breath TECHNIQUE: Single frontal radiograph of the chest was obtained. Comparison: Comparison is made to chest radiograph 03/09/2022 FINDINGS: No lines and tubes are seen. Cardiomegaly is noted. Prominence and cephalization of the vasculature i s seen. There is an ill-defined left retrocardiac opacity. No evidence of pleural effusion or pneumot horax. IMPRESSION: 1. Cardiomegaly and mild pulmonary edema. 2. Ill-defined left retrocardiac opacity, similar to prior exam, may represent atelectasis, pneumoni a, and/or aspiration. ACT 112: Negative or not required by law. Electronically signed by: Willis Bee M.D. 03/12/2022 8:44 AM
--- NOTE | 2022-03-12 09:59 | CT Scan Report ---
CT chest diagnostic wo con CLINICAL HISTORY: retrocardiac opacity TECHNIQUE: Multidetector row helical CT of the chest was performed. Coronal and sagittal reformations were obtained. Automated dose lowering techniques and/or adjustment according to patient size were u tilized for this exam. CT DOSE: 797.28 mGy.cm Comparison: Comparison is made to chest radiograph 03/12/2022 FINDINGS: Lungs and pleura: Small bilateral pleural effusions are seen with underlying atelectasis. There is a 3 mm nodule in the left upper lobe (series 4 image 69). Heart and pericardium: Cardiomegaly is seen with biatrial enlargement. Vessels: Severe atherosclerotic changes in the aorta and coronary arteries. The pulmonary trunk measu res 34 mm in diameter. Mediastinum and dahiana: Unremarkable. Chest wall and lower neck: Unremarkable. Abdomen: A hepatic cyst is seen in segment IVb. Bones: Degenerative changes in the thoracic spine. IMPRESSION: 1. Small bilateral pleural effusions with underlying atelectasis. 2. 3 mm nodule in the left upper lobe. According to Fleischner criteria, no follow-up is required in low risk patients, in high-risk patients, a 12 month follow-up CT can be optionally performed. ACT 112: Negative or not required by law. Electronically signed by: Willis Bee M.D. 03/12/2022 9:57 AM
--- NOTE | 2022-03-12 10:12 | Cardiology Progress Note ---
Date of Service March 12, 2022 Assessment & Plan (1) Atrial fibrillation with rapid ventricular response: (2) CHF (congestive heart failure): (3) Elevated troponin I level: (4) HTN (hypertension): Plan Patient admitted with 4 weeks of ongoing shortness of breath diagnosed with atrial fibrillation duration unknown. Developed acute on chronic systolic HF with mildly reduced LVEF at 45% per echo. Intravenous Cardizem discontinued 02/28/2022. Heart rate remains borderline e levated. Continue metoprolol tartrate 25 mg 3 times daily (dose increased yesterday). Restart oral diuretic therapy, Lasix 20 mg daily. 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 Significant hematuria occurred overnight 03/09-03/10. Likely secondary to traumatic [place]. IV heparin on hold. No recurrent hematuria over the past 24 hours. Recommend restart IV heparin today with close monitoring for recurrent hematuria. Transition to Eliquis at discharge. Given mildly reduced LV function and wall motion abnormalities, consider outpatient nuclear stress test once volume status and rates improve. Continue ASA, and lisinopril. LDL 47 mg/DL. No indication for statin therapy currently. Admission and Anticipated Discharge Date Admission Date: March 11, 2022 Subjective Patient seen examined at the bedside. Continues to note "attacks" described as heart racing and anxiety. Heart rate remains mildly elevated on telemetry. Metoprolol tartrate titrated to 25 mg 3 times daily yesterday, however, he only received 2 doses thus far. Blood pressures remain borderline hypotensive. Edema unchanged. Creatinine trending downward. Denies orthopnea or PND. Review of Systems Review of Systems: All systems reviewed & are unremarkable except as noted in Subjective Physical Exam Constitutional: well nourished; no acute distress Respiratory: no respiratory distress, no labored breathing and no retractions Auscultation: no crackles, no rales, no rhonchi and no wheezes Cardiovascular: Rate/Rhythm: + tachycardic and + irregularly irregular Heart Sounds: normal S1 and normal S2; no murmur Vessels: radial pulses present; no JVD Extremities: no edema Gastrointestinal (Abdomen): Inspection/Auscultation: abdomen normal to inspection and normal bowel sounds; abdomen not distended Percussion/Palpation: abdomen soft; abdomen nontender, no guarding and abdomen not rigid Neurologic: CN's II-XI intact bilaterally and moves all extremities; no focal motor deficits Results & Data ([facility]) Vital Signs (Past 12 Hours) Vital Signs Temp Pulse Pulse Resp BP BP Pulse Ox 03/12/22 07:28 36.6 C 113 H 20 115/90 95 03/12/22 02:30 36.5 C 120 H 22 115/78 96 03/11/22 22:22 96 H 03/11/22 23:11 36.2 C L 115 H 22 111/84 95 O2 Del Method O2 Flow Rate 03/12/22 07:28 Room Air 03/12/22 02:30 Nasal Cannula 2 03/11/22 22:22 03/11/22 23:11 Room Air (1) CHF (congestive heart failure) Heart failure chronicity: acute Heart failure type: unspecified Qualified Code(s): I50.9 - Heart failure, unspecified
--- NOTE | 2022-03-12 10:43 | Hospitalist Progress Note ---
Date of Service March 12, 2022 Assessment & Plan (1) Atrial fibrillation with rapid ventricular response: (2) (HFpEF) heart failure with preserved ejection fraction: (3) HTN (hypertension): (4) HLD (hyperlipidemia): Plan Mr. Uli Gregory is an 86 year old male who presented to the [facility] with SOB over the past few weeks, on and off, with more orthopnea this morning, along with feelings of 'his heart racing'. Three weeks ago he was seen in urgent care and treated for a URI with Prednisone (no abx). + Bilateral LE swelling. CXR L > R pleural effusions and atelectasis vs CAP. Recently was treated as an OPT for nummular eczema and was switched from Lisinopril to Amlodipine in case the ACEI was a contributor to his rash. BNP 608 and most recent ECHO was from 11/2021: EF 55-60% with mild TR but no pHTN. Additional PMH includes: HLD, HTN, prostate ca, H/O TIA and H/O Lymes Disease. 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 AF with RVR: New onset; confirmed on EKG Received loading dose of Cardizem in ED s/p cardizem ggt - no stopped - started on po metoprolol 03/09/2022 - cardiology to adjust BB as HR still elevated Cards following - appreciate recs PCU admit for new onset AF and gtt management - can likely be downgraded to med/surg with telemetry if remains stable today heparin drip stopped due to hematuria - urine clear - restart heparin and monitor for recurrance of hematuria - d/c on eliquis if tolerating AC HFpEF: Latest ECHO: 11/2021: EF 55-60%; mild TR, no pHTN Repeat ECHO with mildly reduced EF 45% 02/2022, could be in setting of new Afib BNP 608 Troponin 23.9 - switch to lasix 20mg PO daily per Cardiology Cards consult Monitor I/O Hematuria - could be due to traumatic brennan as patient was pulling at this overnight and had clear urine yesterday - also in setting of heparin drip - now on hold - resistance on flushing brennan and reinsertion - urology consulted for hematuria and brennan resistance - monitor for resolution of hematuria - resolve - heparin ggt restarted, monitor Pleural Effusions: Had a cough and URI over past few weeks; completed a Prednisone taper pack Leukocytosis on admission CXR Atelectasis vs CAP - persistence of leukocytosis - CT chest with bilateral small pleural effusions with atelectasis, no consolidation seen - will continue to watch off abx Procal negative COVID-19 swab negative HTN: Goal SBP < 140 Recently Lisinopril switched to Amlodipine d/t nummular eczema. Continue Amlodipine with holding parameters HLD: Diet controlled 03/16; LDL 82, HDL 53; TG 97 Nummular Eczema: Resolving; some rash noted on left forearm and back Takes Temovate create; continue Disposition: PCP: Dr. Tinoco Code: Full Point of Contact: Loreto, daughter [phone] Plan to return home post DC Admission and Anticipated Discharge Date Admission Date: March 11, 2022 Subjective Patient presenting with several weeks of progressive shortness of breath and orthopnea, denies chest pain or palpitations, n/v, LOC, light headedness, dizziness. Found to be in Afib with RVR and pulmonary congestion. Initially responded to diltiazem IV in ED. On RA, trace LE edema, lungs CTAB, irregularly irregular rhythm on exam and afib on ECG with rates in 120-130s. Started on dilt drip and heparin drip, added po metoprolol and stopped dilt with rate control. Had hematuria in brennan 03/10/2022, heparin stopped, brennan removed, resistance reinserting, urology consulted. Will likely continue with po metoprolol and start on Eliquis once hematuria resolves due to high [id number] score. The patient reports some palpitations intermittently. Denies chest pain, cough, fever or chills, n/v/d, abdominal pain. Reports urine is yellow today. Denies orthopnea or pnd. Review of Systems Review of Systems: All systems reviewed & are unremarkable except as noted in Subjective Physical Exam Physical Exam: Neuro: AAOx4, PERRLA, no aphagia, memory changes, CNII-XII grossly intact HEENT: head normocephalic, moist mucus membranes CV: S1/S2, (-) M/G/R, (+) 2 /L LE edema to lower calf, cap refill < 3 seconds Resp: Lungs CTA in all dowd. on RA GI: Abdomen S/NT/ND, Ax4 bowel sounds, (-) CVA tenderness Musculoskeletal: 5/5 B/L UE strength, 5/5 B/L LE strength. No gait disturbance Skin: (+) rashes, not new with improvment , (-) erythema. Psych: euthymic mood Results & Data Results & Data ([facility]) Vital Signs (Past 12 Hours) Vital Signs Temp Pulse Resp BP BP Pulse Ox O2 Del Method 03/12/22 07:28 36.6 C 113 H 20 115/90 95 Room Air 03/12/22 02:30 36.5 C 120 H 22 115/78 96 Nasal Cannula 03/11/22 23:11 36.2 C L 115 H 22 111/84 95 Room Air O2 Flow Rate 03/12/22 07:28 03/12/22 02:30 2 03/11/22 23:11 Laboratory Results Short CBC 03/12/22 Range/Units 05:51 WBC 14.57 H (4.8-10.8) K/ul Hgb 16.8 (14.0-18.0) g/dl Hct 49.9 (40.1-51.0) % Plt Count 188 (130-400) K/uL BMP 03/12/22 05:51 Sodium 137 Potassium 4.6 Chloride 104 Carbon Dioxide 27 BUN 39 H Creatinine 1.23 Glucose 86 Calcium 9.1 Urine 03/12/22 Range/Units 07:53 Urine Color Yellow Urine Appearance Clear (Clear) Urine pH 5.5 (4.5-7.5) Ur Specific [place] 1.026 (1.000-1.030) Urine Protein Trace H (Negative) Urine Glucose (UA) Negative (Negative) Diagnostic Findings Chest X-Ray 03/12/22 07:05 XR chest 1V portable CLINICAL HISTORY: shortness of breath TECHNIQUE: Single frontal radiograph of the chest was obtained. Comparison: Comparison is made to chest radiograph 03/09/2022 FINDINGS: No lines and tubes are seen. Cardiomegaly is noted. Prominence and cephalization of the vasculature is seen. There is an ill-defined left retrocardiac opacity. No evidence of pleural effusion or pneumothorax. IMPRESSION: 1. Cardiomegaly and mild pulmonary edema. 2. Ill-defined left retrocardiac opacity, similar to prior exam, may represent atelectasis, pneumonia, and/or aspiration. ACT 112: Negative or not required by law. Electronically signed by: Willis Bee M.D. 03/12/2022 8:[address] 03/12/22 07:53 CT chest diagnostic wo con CLINICAL HISTORY: retrocardiac opacity TECHNIQUE: Multidetector row helical CT of the chest was performed. Coronal and sagittal reformations were obtained. Automated dose lowering techniques and/or adjustment according to patient size were utilized for this exam. CT DOSE: 797.28 mGy.cm Comparison: Comparison is made to chest radiograph 03/12/2022 FINDINGS: Lungs and pleura: Small bilateral pleural effusions are seen with underlying atelectasis. There is a 3 mm nodule in the left upper lobe (series 4 image 69). Heart and pericardium: Cardiomegaly is seen with biatrial enlargement. Vessels: Severe atherosclerotic changes in the aorta and coronary arteries. The pulmonary trunk measures 34 mm in diameter. Mediastinum and dahiana: Unremarkable. Chest wall and lower neck: Unremarkable. Abdomen: A hepatic cyst is seen in segment IVb. Bones: Degenerative changes in the thoracic spine. IMPRESSION: 1. Small bilateral pleural effusions with underlying atelectasis. 2. 3 mm nodule in the left upper lobe. According to Fleischner criteria, no fol low-up is required in low risk patients, in high-risk patients, a 12 month follow-up CT can be optionally performed. ACT 112: Negative or not required by law. Electronically signed by: Willis Bee M.D. 03/12/2022 9:57 AM Medications Administered Current Inpatient Medications Acetaminophen (Acetaminophen 325 Mg Tab) 650 mg PO Q4H PRN PRN Reason: Pain or Fever Stop: 04/08/22 07:47 Aspirin (Aspirin 81 Mg Ectab) 81 mg PO DAILY [facility] Stop: 04/08/22 11:59 Last Admin: 03/12/22 07:48 Dose: 81 mg Furosemide (Furosemide 20 Mg Tab) 20 mg PO QAM [facility] Stop: 04/12/22 08:59 Heparin Sodium/Dextrose (Heparin Iv Adult Wt-Based Standard *No* Bolus Protocol) 1 each IV ONE ONE; Protocol Stop: 03/12/22 10:37 Heparin Sodium/Dextrose (Heparin Sodium/Dextrose) 25,000 units in 500 mls @ 0 mls/hr IV .Q0M [facility]; Protocol Stop: 04/08/22 10:44 Last Titration: 03/10/22 11:07 Dose: 0 units/hr, 0 mls/hr Heparin Sodium/Dextrose (Heparin Sodium/Dextrose) 25,000 units in 500 mls @ 0.02 mls/hr IV .Q24H [facility]; Protocol Stop: 04/11/22 10:59 Metoprolol Tartrate (Metoprolol Tartrate 25 Mg Tab) 25 mg PO TID [facility] Stop: 04/10/22 13:59 Last Admin: 03/12/22 07:48 Dose: 25 mg Nitroglycerin (Nitroglycerin Sl 0.4 Mg/Tab Tab) 0.4 mg SL UD PRN PRN Reason: Chest Pain Stop: 04/08/22 07:47 Polyethylene Glycol (Polyethylene (Miralax) 17 Gm Pack) 17 gm PO DAILY PRN PRN Reason: Constipation Stop: 04/08/22 07:47 Sennosides (Senna 8.6 Mg Tab) 8.6 mg PO QAM [facility] Stop: 04/09/22 08:59 Last Admin: 03/12/22 08:02 Dose: Not Given
[2022-03-12] MEDS ORDERED: Heparin IV Adult Wt-Based Standard *NO* Bolus Protocol IV SCH (11:00)
[2022-03-12 12:25] LABS: Partial Thromboplastin Time 28.7 Seconds (21.0-31.0)
[2022-03-12] MEDS: HEPARIN SODIUM/DEXTROSE 25,000 UNITS/500 ML BAG IV SCH (12:36)
[2022-03-12 19:47] LABS: Partial Thromboplastin Ratio 3.4
[2022-03-12 20:09] LABS: Partial Thromboplastin Time 94.5 Seconds (21.0-31.0)
[2022-03-12] MEDS: MELATONIN 3 MG TAB PO PRN ×2 (20:50→23:28)
[2022-03-12] MEDS: LORazepam 0.5 MG TAB PO PRN ×2 (20:50→23:29)
[2022-03-13 03:43] LABS: Basophils # (auto) 0.04 K/uL (0-0.2); Basophils % (auto) 0.3 %; Eosinophils # (auto) 0.22 K/uL (0-0.50); Eosinophils % (auto) 1.8 %; Hematocrit (blood only) 44.9 % (40.1-51.0); Hemoglobin 15.5 g/dl (14.0-18.0); Immature Granulocytes # (auto) 0.07 K/uL (0.00-0.02); Immature Granulocytes % (auto) 0.6 %; Lymphocytes # (auto) 1.39 K/uL (1.2-3.4); Lymphocytes % (auto) 11.1 %; Mean Corpuscular Hemoglobin 29.7 pg (25.0-34.0); Mean Corpuscular Hgb Conc 34.5 g/dL (32.0-36.0); Mean Platelet Volume 11.3 fL (9.4-12.4); Monocytes # (auto) 0.98 K/uL (0.24-0.82); Monocytes % (auto) 7.8 %; Neutrophils # (auto) 9.82 K/uL (1.4-6.5); Neutrophils % (auto) 78.4 %; Platelet Count 163 K/uL (130-400); RDW Coefficient of Variation 15.7 % (11.5-14.5); RDW Standard Deviation 48.6 fL (36.4-46.3); Red Blood Count 5.22 M/uL (4.63-6.08); White Blood Count 12.52 K/ul (4.8-10.8)
[2022-03-13 04:04] LABS: BUN Creatinine Ratio 33.3 (10-20); Calcium 8.6 mg/dl (8.5-10.1); Creatinine Clr Calc Pharmacy 59.6 ml/min; Est GFR (African American) 75.2 ml/min; Est GFR (Non-African American) 64.9 ml/min; Magnesium 2.3 mg/dl (1.7-2.4); Phosphorus 3.6 mg/dl (2.5-4.9); Potassium 4.2 mmol/L (3.5-5.1)
[2022-03-13 04:09] LABS: Partial Thromboplastin Ratio 3.7
[2022-03-13 04:17] LABS: Partial Thromboplastin Time 101.6 Seconds (21.0-31.0)
[2022-03-13] MEDS: SENNA 8.6 MG TAB PO SCH (08:27)
[2022-03-13] MEDS: METOPROLOL TARTRATE 25 MG TAB PO SCH (08:28)
[2022-03-13] MEDS: ASPIRIN 81 MG ECTAB PO SCH (08:28)
[2022-03-13] MEDS ORDERED: FUROSEMIDE 20 MG TAB PO SCH (09:00)
[2022-03-13] MEDS: HEPARIN SODIUM/DEXTROSE 25,000 UNITS/500 ML BAG IV SCH (09:22)
[2022-03-13 12:28] LABS: Partial Thromboplastin Ratio 2.7
[2022-03-13 12:38] LABS: Partial Thromboplastin Time 75.2 Seconds (21.0-31.0)
[2022-03-13] MEDS ORDERED: METOPROLOL TARTRATE 25 MG TAB PO STA (13:02)
[2022-03-13] MEDS ORDERED: FUROSEMIDE INJ 20 MG/2 ML VIAL IV ONE (13:07)
--- NOTE | 2022-03-13 13:08 | Cardiology Progress Note ---
Date of Service March 13, 2022 Assessment & Plan (1) Atrial fibrillation with rapid ventricular response: (2) CHF (congestive heart failure): (3) Elevated troponin I level: (4) HTN (hypertension): Plan Patient admitted with 4 weeks of ongoing shortness of breath diagnosed with atrial fibrillation duration unknown. Developed acute on chronic systolic HF with mildly reduced LVEF at 45% per echo. Intravenous Cardizem discontinued 03/10/2022. Heart rate remains borderline elevated. Titrate metoprolol to 50 mg twice daily. Edema unchanged despite addition of low-dose furosemide. Recommend 20 mg of IV Lasix today. Increase oral furosemide to 40 mg daily. [id number] score of 6 (age, CHF, HTN, possible prior TIA in 2018). Significant hematuria occurred overnight 03/09-03/10. Likely secondary to traumatic Hercules. No recurrent hematuria over the past 48 hours. Continue IV heparin (restarted 03/12) with close monitoring for recurrent hematuria. Transition to Eliquis at discharge. Given mildly reduced LV function and wall motion abnormalities, consider outpatient nuclear stress test once volume status and rates improve. Continue ASA, and lisinopril. LDL 47 mg/DL. No indication for statin therapy currently. Admission and Anticipated Discharge Date Admission Date: March 11, 2022 Subjective Patient seen and examined at the bedside. Heart rate remains elevated despite titration of metoprolol to 25 mg 3 times daily. Continues to note palpitations and elevated heart rates with associated anxiety.Denies chest pain or shortness of breath. Lower extremity edema unchanged. Low-dose Lasix, 20 mg daily added yesterday. Fluid balance remains positive. Review of Systems Review of Systems: All systems reviewed & are unremarkable except as noted in Subjective Physical Exam Constitutional: well nourished; no acute distress Respiratory: no respiratory distress, no labored breathing and no retractions Auscultation: no crackles, no rales, no rhonchi and no wheezes Cardiovascular: Rate/Rhythm: + tachycardic and + irregularly irregular Heart Sounds: normal S1 and normal S2; no murmur Vessels: radial pulses present; no JVD Extremities: no edema Gastrointestinal (Abdomen): Inspection/Auscultation: abdomen normal to inspection and normal bowel sounds; abdomen not distended Percussion/Palpation: abdomen soft; abdomen nontender, no guarding and abdomen not rigid Neurologic: CN's II-XI intact bilaterally and moves all extremities; no focal motor deficits Results & Data ([facility]) Vital Signs (Past 12 Hours) Vital Signs Temp Pulse Pulse Resp BP BP Pulse Ox 03/13/22 11:25 36.6 C 113 H 20 109/77 92 03/13/22 09:47 03/13/22 09:20 111 H 03/13/22 07:49 36.7 C 70 18 116/88 96 03/13/22 03:55 36.4 C L 93 H 22 102/74 97 O2 Del Method 03/13/22 11:25 Room Air 03/13/22 09:47 Room Air 03/13/22 09:20 03/13/22 07:49 Room Air 03/13/22 03:55 Room Air (1) CHF (congestive heart failure) Heart failure chronicity: acute Heart failure type: unspecified Qualified Code(s): I50.9 - Heart failure, unspecified
--- NOTE | 2022-03-13 17:21 | Hospitalist Progress Note ---
Date of Service March 13, 2022 Assessment & Plan (1) Atrial fibrillation with rapid ventricular response: (2) (HFpEF) heart failure with preserved ejection fraction: (3) HTN (hypertension): (4) HLD (hyperlipidemia): Plan 86 year old male who presented to the [facility] with SOB over the past few weeks, on and off, with more orthopnea on the AM of arrival day, along with feelings of 'his heart racing'. 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 + Bilateral LE swelling. Admitting CXR L > R pleural effusions and atelectasis vs CAP. Recently was treated as an OPT for nummular eczema and was switched from Lisinopril to Amlodipine in case the ACEI was a contributor to his rash. BNP 608 at presentation and most recent ECHO was from 11/2021: EF 55-60% with mild TR but no pHTN. Additional PMH includes: HLD, HTN, prostate ca, H/O TIA and H/O Lymes Disease. 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 He is being managed for the following: AF with RVR: New onset; confirmed on EKG Status post IV Cardizem [discontinued 03/10/2022] Heart rate in 100s to 110s started on po metoprolol 03/09/2022 - cardiology to adjust BB as HR still elevated Cards following - appreciate recs Initially Heparin drip held due to significant hematuria that occurred overnight 03/09-03/10 likely secondary to traumatic Brennan. Restarted heparin drip 03/12. To be transitioned to p.o. Eliquis on discharge. Patient with no hematuria since last 1 to 2 days, hemoglobin stable. HFpEF: Latest ECHO: 11/2021: EF 55-60%; mild TR, no pHTN Repeat ECHO with mildly reduced EF 45% 02/2022, could be in setting of new Afib BNP 608 at presentation Troponin 23.9 at presentation and flat trended. Diuresis being managed per cardiology. Monitor input and output, daily weight. Hematuria and likely UTI: Hematuria overnight 03/09 - 03/10 - could be due to traumatic brennan as patient was pulling at overnight of 03/09 - 03/10 on the background of heparin drip. -Heparin drip restarted 03/12, patient with no hematuria since last 2 days. -Patient complaining of some burning while passing urine today, will put him on Rocephin 03/13, urinalysis. -Urology evaluated 03/11, appreciate recommendation. Pleural Effusions: Had a cough and URI over past few weeks; completed a Prednisone taper pack Leukocytosis on admission CXR Atelectasis vs CAP - persistence of leukocytosis - CT chest with bilateral small pleural effusions with atelectasis, no consolidation seen -Was being monitored off of antibiotic until 03/13, on 03/13 Pro-Victor M negative, patient started on Rocephin for possible UTI on 03/13 COVID- swab negative HTN: Goal SBP < 140 Recently Lisinopril switched to Amlodipine d/t nummular eczema. Continue Amlodipine with holding parameters HLD: Diet controlled 03/16; LDL 82, HDL 53; TG 97 Nummular Eczema: Resolving; some rash noted on left forearm and back Takes Temovate create; continue Disposition: PCP: Dr. Tinoco Code: Full Point of Contact: Loreto, daughter [phone] Plan to return home post DC Admission and Anticipated Discharge Date Admission Date: March 11, 2022 Subjective Patient seen and examined at bedside as a follow-up of Paulette lopez with RVR and heart failure with preserved ejection fraction and hematuria. Patient was sitting up in chair, on room air, NAD, denied acute events overnight, reports eating okay and moving bowels okay, reports some burning with passing urine today, will start him on Rocephin while in here, also reports some shortness of breath with activity but reports that it is improving overall gradually. Patient denies any headache or dizziness or sore throat or fever or belly pain or other review of symptoms. Patient denies blood in urine. Physical Exam Physical Exam: GENERAL: Alert and oriented x3. NAD, on RA. HEENT: No pallor, no icterus. Pupils equal, round and reactive to light. Oral mucosa moist. NECK: No JVD, no neck masses. HEART: S1 and S2 heard. Regular rate and rhythm. No murmur, no gallop. RESPIRATORY SYSTEM: Normal AP diameter. No accessory muscle use. No wheezing, b/b crackles. ABDOMEN: Soft, bowel sounds present, nontender, no distention. CENTRAL NERVOUS SYSTEM: No facial droop. Speech is clear. Obeys simple commands. Moves extremities. EXTREMITIES: 1-2+ ble edema, no erythema seen. Results & Data Results & Data ([facility]) Vital Signs (Past 12 Hours) Vital Signs Temp Pulse Pulse Resp BP Pulse Ox O2 Del Method 03/13/22 15:42 36.6 C 118 H 20 93/77 L 96 Room Air 03/13/22 15:00 99 H 03/13/22 11:25 36.6 C 113 H 20 109/77 92 Room Air 03/13/22 09:47 Room Air 03/13/22 09:20 111 H 03/13/22 07:49 36.7 C 70 18 116/88 96 Room Air
[2022-03-13] MEDS: cefTRIAXone SODIUM 1,000 MG in DEXTROSE 5% 50 ML IV SCH (18:48)
[2022-03-13 21:19] LABS: Partial Thromboplastin Ratio 2.7
[2022-03-13 21:32] LABS: Partial Thromboplastin Time 73.8 Seconds (21.0-31.0)
[2022-03-13] MEDS: METOPROLOL TARTRATE 50 MG TAB PO SCH (21:59)
[2022-03-14 04:44] LABS: Hematocrit (blood only) 44.4 % (40.1-51.0); Mean Corpuscular Hemoglobin 29.3 pg (25.0-34.0); Mean Corpuscular Hgb Conc 33.8 g/dL (32.0-36.0); Mean Corpuscular Volume 86.7 fL (80.0-100.0); Mean Platelet Volume 11.3 fL (9.4-12.4); Platelet Count 164 K/uL (130-400); RDW Coefficient of Variation 15.6 % (11.5-14.5); RDW Standard Deviation 48.6 fL (36.4-46.3); Red Blood Count 5.12 M/uL (4.63-6.08); White Blood Count 10.16 K/ul (4.8-10.8)
[2022-03-14 05:03] LABS: Calcium 8.8 mg/dl (8.5-10.1); Creatinine Clr Calc Pharmacy 53.5 ml/min; Est GFR (Non-African American) 56.9 ml/min; Magnesium 2.1 mg/dl (1.7-2.4); Phosphorus 3.8 mg/dl (2.5-4.9); Potassium 4.1 mmol/L (3.5-5.1)
[2022-03-14 05:14] LABS: Partial Thromboplastin Ratio 2.3
[2022-03-14 05:17] LABS: Partial Thromboplastin Time 62.8 Seconds (21.0-31.0)
[2022-03-14] MEDS: SENNA 8.6 MG TAB PO SCH (08:43)
[2022-03-14] MEDS: ASPIRIN 81 MG ECTAB PO SCH ×2 (08:43→08:45)
[2022-03-14] MEDS: METOPROLOL TARTRATE 50 MG TAB PO SCH ×2 (08:43→21:11)
[2022-03-14] MEDS: HEPARIN SODIUM/DEXTROSE 25,000 UNITS/500 ML BAG IV SCH (09:22)
[2022-03-14] MEDS: FUROSEMIDE 40 MG TAB PO SCH (09:22)
[2022-03-14 09:46] LABS: Appearance Urine Clear (Clear); Bacteria Urine Automated Negative (Negative); Bilirubin Urine Negative (Negative); Blood Urine 2+ (Negative); Color Urine Yellow; Glucose Urine UA Negative (Negative); Ketones Urine Negative (Negative); Leukocyte Esterase Urine Trace (Negative); Nitrite Urine Negative (Negative); Protein Urine Negative (Negative); Urobilinogen Urine Negative (Negative)
--- NOTE | 2022-03-14 11:15 | Cardiology Progress Note ---
Date of Service March 14, 2022 Assessment & Plan (1) Atrial fibrillation with rapid ventricular response: (2) CHF (congestive heart failure): (3) Elevated troponin I level: (4) HTN (hypertension): Plan Patient admitted with 4 weeks of ongoing shortness of breath diagnosed with atrial fibrillation duration unknown. Developed acute on chronic systolic HF with mildly reduced LVEF at 45% per echo. Intravenous Cardizem discontinued 03/10/2022. Rate control mildly improved with titration of metoprolol to 50 mg twice daily. [id number] score of 6 (age, CHF, HTN, possible prior TIA in 2018). Significant hematuria occurred overnight 03/09-03/10. Likely secondary to traumatic Hercules. No recurrent hematuria over the past 72 hours. Discontinue IV heparin today. Start Eliquis this evening. Given mildly reduced LV function and wall motion abnormalities, consider outpatient nuclear stress test once volume status and rates improve. Continue ASA, and lisinopril. LDL 47 mg/DL. No indication for statin therapy currently. Admission and Anticipated Discharge Date Admission Date: March 11, 2022 Subjective Patient seen examined the bedside. Heart rate mildly improved with titration of metoprolol to 50 mg twice daily. Patient continues to report anxiety. Edema improved with titration of Lasix to 40 mg daily, however, blood pressure remains borderline hypotensive. Review of Systems Review of Systems: All systems reviewed & are unremarkable except as noted in Subjective Physical Exam Constitutional: well nourished; no acute distress Respiratory: no respiratory distress, no labored breathing and no retractions Auscultation: no crackles, no rales, no rhonchi and no wheezes Cardiovascular: Rate/Rhythm: + tachycardic and + irregularly irregular Heart Sounds: normal S1 and normal S2; no murmur Vessels: radial pulses present; no JVD Extremities: no edema Gastrointestinal (Abdomen): Inspection/Auscultation: abdomen normal to inspection and normal bowel sounds; abdomen not distended Percussion/Palpation: abdomen soft; abdomen nontender, no guarding and abdomen not rigid Neurologic: CN's II-XI intact bilaterally and moves all extremities; no focal motor deficits Results & Data ([facility]) Vital Signs (Past 12 Hours) Vital Signs Temp Pulse Resp BP BP Pulse Ox O2 Del Method 03/14/22 10:57 36.5 C 101 H 20 88/60 L 82/59 L 92 Room Air 03/14/22 09:55 Room Air 03/14/22 08:04 36.4 C L 106 H 20 123/72 96 Room Air 03/14/22 03:01 36.7 C 109 H 16 96/61 L 94 Room Air (1) CHF (congestive heart failure) Heart failure chronicity: acute Heart failure type: unspecified Qualified Code(s): I50.9 - Heart failure, unspecified
[2022-03-14] MEDS: hydrOXYzine HCl 25 MG TAB PO PRN (12:18)
[2022-03-14] MEDS ORDERED: HEPARIN STOP ORDER ONE (16:00)
[2022-03-14 16:20] LABS: Basophils # (auto) 0.04 K/uL (0-0.2); Basophils % (auto) 0.3 %; Eosinophils # (auto) 0.18 K/uL (0-0.50); Eosinophils % (auto) 1.5 %; Hematocrit (blood only) 44.8 % (40.1-51.0); Hemoglobin 15.1 g/dl (14.0-18.0); Immature Granulocytes # (auto) 0.07 K/uL (0.00-0.02); Immature Granulocytes % (auto) 0.6 %; Lymphocytes # (auto) 1.47 K/uL (1.2-3.4); Lymphocytes % (auto) 12.2 %; Mean Corpuscular Hemoglobin 29.6 pg (25.0-34.0); Mean Corpuscular Hgb Conc 33.7 g/dL (32.0-36.0); Mean Corpuscular Volume 87.8 fL (80.0-100.0); Mean Platelet Volume 11.6 fL (9.4-12.4); Monocytes # (auto) 1.01 K/uL (0.24-0.82); Monocytes % (auto) 8.4 %; Neutrophils # (auto) 9.24 K/uL (1.4-6.5); Platelet Count 160 K/uL (130-400); RDW Coefficient of Variation 15.7 % (11.5-14.5); RDW Standard Deviation 50.2 fL (36.4-46.3); White Blood Count 12.01 K/ul (4.8-10.8)
--- NOTE | 2022-03-14 16:34 | Hospitalist Progress Note ---
Date of Service March 14, 2022 Assessment & Plan (1) Atrial fibrillation with rapid ventricular response: (2) (HFpEF) heart failure with preserved ejection fraction: (3) HTN (hypertension): (4) HLD (hyperlipidemia): Plan 86 year old male who presented to the [facility] with SOB over the past few weeks, on and off, with more orthopnea on the AM of arrival day, along with feelings of 'his heart racing'. 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 + Bilateral LE swelling. Admitting CXR L > R pleural effusions and atelectasis vs CAP. Recently was treated as an OPT for nummular eczema and was switched from Lisinopril to Amlodipine in case the ACEI was a contributor to his rash. BNP 608 at presentation and most recent ECHO was from 11/2021: EF 55-60% with mild TR but no pHTN. Additional PMH includes: HLD, HTN, prostate ca, H/O TIA and H/O Lymes Disease. 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 He is being managed for the following: AF with RVR: New onset; confirmed on EKG Status post IV Cardizem [discontinued 03/10/2022] Heart rate in 100s to 110s started on po metoprolol 03/09/2022 - cardiology optimizing BB as HR still elevated Cards following - appreciate recs Initially Heparin drip held due to significant hematuria that occurred overnight 03/09-03/10 likely secondary to traumatic Brennan. Restarted heparin drip 03/12. To be transitioned to p.o. Eliquis 03/14 PM. Patient with no hematuria since last 2 to 3 days, hemoglobin stable. HFpEF: Latest ECHO: 11/2021: EF 55-60%; mild TR, no pHTN Repeat ECHO with mildly reduced EF 45% 02/2022, could be in setting of new Afib BNP 608 at presentation Troponin 23.9 at presentation and flat trended. Diuresis being managed per cardiology. Monitor input and output, daily weight. Hematuria and likely UTI: Hematuria overnight 03/09 - 03/10 - could be due to traumatic brennan as patient was pulling at overnight of 03/09 - 03/10 on the background of heparin drip. -Heparin drip restarted 03/12, patient with no hematuria since last 3 days. -Patient complaining of some burning while passing urine 03/13, Rocephin 03/13, improvement in symptom per patient. -Urology evaluated 03/11, appreciate recommendation. Pleural Effusions: Had a cough and URI over past few weeks; completed a Prednisone taper pack Leukocytosis on admission CXR Atelectasis vs CAP - persistence of leukocytosis - CT chest with bilateral small pleural effusions with atelectasis, no consolidation seen -Was being monitored off of antibiotic until 03/13, on 03/13 Pro-Victor M negative, patient started on Rocephin for possible UTI on 03/13 COVID- swab negative HTN: Goal SBP < 140 Recently Lisinopril switched to Amlodipine d/t nummular eczema. Continue Amlodipine with holding parameters HLD: Diet controlled 03/16; LDL 82, HDL 53; TG 97 Nummular Eczema: Resolving; some rash noted on left forearm and back Takes Temovate create; continue Disposition: PCP: Dr. Tinoco Code: Full Point of Contact: Harman, daughter [phone] PT/OT recommends rehab, patient denying rehab or home health. 03/14 pt's dtr harman updated. Admission and Anticipated Discharge Date Admission Date: March 11, 2022 Subjective Patient seen and examined at bedside as a follow-up of Paulette lopez with RVR and heart failure with preserved ejection fraction and hematuria. Patient was lying semiupright in bed, on room air, NAD, denied acute events overnight, reports eating okay and moving bowels okay, reports improvement in burning with passing urine that was reported 03/13, patient remains short of breath with increased heart rate with minimal exertion Per PT note. Patient denies any headache or dizziness or sore throat or fever or belly pain or other review of symptoms. Patient denies blood in urine. Patient appears sad and seemed anxious and not able to tell how he was feeling and what is bothering him. Physical Exam Physical Exam: GENERAL: Alert and oriented x3. NAD, on RA. Appears anxious. HEENT: No pallor, no icterus. Pupils equal, round and reactive to light. Oral mucosa moist. NECK: No JVD, no neck masses. HEART: S1 and S2 heard. irregular rate and rhythm. No murmur, no gallop. RESPIRATORY SYSTEM: Normal AP diameter. No accessory muscle use. No wheezing, b/b crackles. ABDOMEN: Soft, bowel sounds present, nontender, no distention. CENTRAL NERVOUS SYSTEM: No facial droop. Speech is clear. Obeys simple commands. Moves extremities. EXTREMITIES: 1-2+ ble edema, no erythema seen. Results & Data Results & Data ([facility]) Vital Signs (Past 12 Hours) Vital Signs Temp Pulse Pulse Resp BP BP Pulse Ox 03/14/22 15:25 95 H 03/14/22 06:22 111 H 03/14/22 12:16 113/87 03/14/22 10:57 36.5 C 101 H 20 88/60 L 82/59 L 92 03/14/22 09:55 03/14/22 08:04 36.4 C L 106 H 20 123/72 96 O2 Del Method 03/14/22 15:25 03/14/22 06:22 03/14/22 12:16 03/14/22 10:57 Room Air 03/14/22 09:55 Room Air 03/14/22 08:04 Room Air
[2022-03-14 16:46] LABS: INR 1.1 (0.9-1.1); Partial Thromboplastin Ratio 2.1; Prothrombin Time 11.8 Seconds (9.0-12.0)
[2022-03-14 16:47] LABS: Partial Thromboplastin Time 57.6 Seconds (21.0-31.0)
[2022-03-14] MEDS: cefTRIAXone SODIUM 1,000 MG in DEXTROSE 5% 50 ML IV SCH (17:08)
[2022-03-14] MEDS: APIXABAN 5 MG TABLET PO SCH (17:08)
[2022-03-14] MEDS: LORazepam 0.5 MG TAB PO PRN (21:11)
[2022-03-15] MEDS: hydrOXYzine HCl 25 MG TAB PO PRN ×2 (01:27→20:36)
[2022-03-15] MEDS: LORazepam 0.5 MG TAB PO PRN ×2 (01:28→20:36)
[2022-03-15 06:59] LABS: Partial Thromboplastin Ratio 1.1; Partial Thromboplastin Time 30.8 Seconds (21.0-31.0)
[2022-03-15 08:18] LABS: Hematocrit (blood only) 42.6 % (40.1-51.0); Hemoglobin 14.6 g/dl (14.0-18.0); Mean Corpuscular Hemoglobin 29.6 pg (25.0-34.0); Mean Corpuscular Hgb Conc 34.3 g/dL (32.0-36.0); Mean Corpuscular Volume 86.2 fL (80.0-100.0); Mean Platelet Volume 12.2 fL (9.4-12.4); Platelet Count 158 K/uL (130-400); RDW Coefficient of Variation 15.9 % (11.5-14.5); RDW Standard Deviation 49.3 fL (36.4-46.3); Red Blood Count 4.94 M/uL (4.63-6.08); White Blood Count 10.52 K/ul (4.8-10.8)
[2022-03-15 08:32] LABS: BUN Creatinine Ratio 37.1 (10-20); Calcium 8.8 mg/dl (8.5-10.1); Creatinine Clr Calc Pharmacy 53.5 ml/min; Est GFR (African American) 66.7 ml/min; Est GFR (Non-African American) 57.5 ml/min; Magnesium 2.1 mg/dl (1.7-2.4); Potassium 4.2 mmol/L (3.5-5.1)
[2022-03-15] MEDS: APIXABAN 5 MG TABLET PO SCH ×2 (08:49→20:36)
[2022-03-15] MEDS: SENNA 8.6 MG TAB PO SCH (08:49)
[2022-03-15] MEDS: FUROSEMIDE 40 MG TAB PO SCH (08:49)
[2022-03-15] MEDS: METOPROLOL TARTRATE 50 MG TAB PO SCH ×3 (08:49→20:36)
[2022-03-15] MEDS: ASPIRIN 81 MG ECTAB PO SCH (08:49)
[2022-03-15] MEDS ORDERED: DIGOXIN 0.25 MG TAB PO ONE (09:50)
--- NOTE | 2022-03-15 11:17 | Cardiology Progress Note ---
Date of Service March 15, 2022 Assessment & Plan (1) Atrial fibrillation with rapid ventricular response: (2) CHF (congestive heart failure): (3) Elevated troponin I level: (4) HTN (hypertension): Plan Patient admitted with 4 weeks of ongoing shortness of breath diagnosed with atrial fibrillation duration unknown. Developed acute on chronic systolic HF with mildly reduced LVEF at 45% per echo. Intravenous Cardizem discontinued 03/10/2022. Rate control mildly improved with titration of metoprolol to 50 mg twice daily. Hold parameters changed to systolic blood pressure less than 90 to improve compliance while hospitalized. Add digoxin. Patient received 250 mcg today then 125 mcg daily. [id number] score of 6 (age, CHF, HTN, possible prior TIA in 2018). Significant hematuria occurred overnight 03/09-03/10. Likely secondary to traumatic [place]. No recurrent hematuria over the past 4 days. IV heparin discontinued. Tolerating Eliquis. Given mildly reduced LV function and wall motion abnormalities, consider outpatient nuclear stress test once volume status and rates improve. Continue ASA, and lisinopril. LDL 47 mg/DL. No indication for statin therapy currently. Admission and Anticipated Discharge Date Admission Date: March 11, 2022 Subjective Patient seen and examined at the bedside. Heart rate mildly improved. He did not receive dose of a.m. metoprolol due to borderline reduced systolic blood pressure. Notes decrease palpitations. Shortness of breath mildly improved. Edema unchanged. Somewhat of a poor historian. No new concerns/complaints per nursing. Review of Systems Review of Systems: All systems reviewed & are unremarkable except as noted in Subjective Physical Exam Constitutional: well nourished; no acute distress Respiratory: no respiratory distress, no labored breathing and no retractions Auscultation: no crackles, no rales, no rhonchi and no wheezes Cardiovascular: Rate/Rhythm: + tachycardic and + irregularly irregular Heart Sounds: normal S1 and normal S2; no murmur Vessels: radial pulses present; no JVD Extremities: no edema Gastrointestinal (Abdomen): Inspection/Auscultation: abdomen normal to inspection and normal bowel sounds; abdomen not distended Percussion/Palpation: abdomen soft; abdomen nontender, no guarding and abdomen not rigid Neurologic: CN's II-XI intact bilaterally and moves all extremities; no focal motor deficits Results & Data ([facility]) Vital Signs (Past 12 Hours) Vital Signs Temp Pulse Pulse Resp BP Pulse Ox O2 Del Method 03/15/22 10:59 36.4 C L 95 H 20 103/64 93 Room Air 03/15/22 10:40 98 H 03/15/22 08:00 36.5 C 98 H 18 96/75 L 90 Room Air 03/15/22 03:25 36.3 C L 105 H 24 121/79 97 Room Air (1) CHF (congestive heart failure) Heart failure chronicity: acute Heart failure type: unspecified Qualified Code(s): I50.9 - Heart failure, unspecified
--- NOTE | 2022-03-15 15:21 | Hospitalist Progress Note ---
Date of Service March 15, 2022 Assessment & Plan (1) Atrial fibrillation with rapid ventricular response: (2) (HFpEF) heart failure with preserved ejection fraction: (3) HTN (hypertension): (4) HLD (hyperlipidemia): Plan 86 year old male who presented to the [facility] with SOB over the past few weeks, on and off, with more orthopnea on the AM of arrival day, along with feelings of 'his heart racing'. 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 + Bilateral LE swelling. Admitting CXR L > R pleural effusions and atelectasis vs CAP. Recently was treated as an OPT for nummular eczema and was switched from Lisinopril to Amlodipine in case the ACEI was a contributor to his rash. BNP 608 at presentation and most recent ECHO was from 11/2021: EF 55-60% with mild TR but no pHTN. Additional PMH includes: HLD, HTN, prostate ca, H/O TIA and H/O Lymes Disease. 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 He is being managed for the following: AF with RVR: New onset; confirmed on EKG. Unknown duration. Status post IV Cardizem [discontinued 03/10/2022] started on po metoprolol 03/09/2022 - cardiology optimizing BB as HR still elevated, started digoxin 03/15 Cards following - appreciate recs On eliquis. Pt still in afib w/ HR in 100s HFpEF: Latest ECHO: 11/2021: EF 55-60%; mild TR, no pHTN Repeat ECHO with mildly reduced EF 45% 02/2022, could be in setting of new Afib BNP 608 at presentation Troponin 23.9 at presentation and flat trended. Diuresis being managed per cardiology. Monitor input and output, daily weight. Hematuria and likely UTI: Hematuria overnight 03/09 - 03/10 - could be due to traumatic brennan as patient was pulling at overnight of 03/09 - 03/10 on the background of heparin drip. -Heparin drip restarted 03/12 --> transitioned to eliquis 03/14 pm, patient with no hematuria since last 4 days. -Patient complained of some burning while passing urine 03/13, Rocephin 03/13, improvement in symptom per patient. . -Urology evaluated 03/11, appreciate recommendation. Pleural Effusions: Had a cough and URI over past few weeks; completed a Prednisone taper pack Leukocytosis on admission CXR Atelectasis vs CAP - persistence of leukocytosis - CT chest with bilateral small pleural effusions with atelectasis, no consolidation seen -Was being monitored off of antibiotic until 03/13, on 03/13 Pro-Victor M negative, patient started on Rocephin for possible UTI on 03/13 COVID-19 swab negative HTN: Goal SBP < 140 Recently Lisinopril switched to Amlodipine d/t nummular eczema. Continue Amlodipine with holding parameters HLD: Diet controlled 03/16; LDL 82, HDL 53; TG 97 Nummular Eczema: Resolving; some rash noted on left forearm and back Takes Temovate create; continue Disposition: PCP: Dr. Tinoco Code: Full Point of Contact: Harman, daughter [phone] PT/OT recommends rehab, patient agreeable to rehab now. 03/14 pt's dtr harman updated. Admission and Anticipated Discharge Date Admission Date: March 11, 2022 Subjective Patient seen and examined at bedside as a follow-up of A. jessica with RVR and heart failure with preserved ejection fraction and hematuria. Patient was lying semiupright in bed, on room air, NAD, denied acute events overnight, reports eating okay and moving bowels okay, denies burning with passing urine, patient improvement in shortness of breath with exertion. Patient denies any headache or dizziness or sore throat or fever or belly pain or other review of symptoms. Patient denies blood in urine. Patient reported improvement in his anxiety with hydroxyzine yesterday, patient advised to ask for hydroxyzine as needed. Physical Exam Physical Exam: GENERAL: Alert and oriented x3. NAD, on RA. Appears calm. HEENT: No pallor, no icterus. Pupils equal, round and reactive to light. Oral mucosa moist. NECK: No JVD, no neck masses. HEART: S1 and S2 heard. irregular rate and rhythm. No murmur, no gallop. RESPIRATORY SYSTEM: Normal AP diameter. No accessory muscle use. No wheezing, no crackles. ABDOMEN: Soft, bowel sounds present, nontender, no distention. CENTRAL NERVOUS SYSTEM: No facial droop. Speech is clear. Obeys simple commands. Moves extremities. EXTREMITIES: 1-2+ ble edema, no erythema seen. Results & Data Results & Data ([facility]) Vital Signs (Past 12 Hours) Vital Signs Temp Pulse Pulse Resp BP Pulse Ox O2 Del Method 03/15/22 10:59 36.4 C L 95 H 20 103/64 93 Room Air 03/15/22 10:40 98 H 03/15/22 08:00 36.5 C 98 H 18 96/75 L 90 Room Air 03/15/22 03:25 36.3 C L 105 H 24 121/79 97 Room Air
[2022-03-15] MEDS ORDERED: DIGOXIN 0.125 MG TAB PO SCH (16:00)
[2022-03-15] MEDS: cefTRIAXone SODIUM 1,000 MG in DEXTROSE 5% 50 ML IV SCH (16:16)
[2022-03-15] MEDS: MELATONIN 3 MG TAB PO PRN (20:36)
[2022-03-16 07:17] LABS: BUN Creatinine Ratio 34.6 (10-20); Calcium 9.3 mg/dl (8.5-10.1); Creatinine Clr Calc Pharmacy 48.9 ml/min; Est GFR (African American) 59.7 ml/min; Est GFR (Non-African American) 51.5 ml/min; Magnesium 2.1 mg/dl (1.7-2.4); Potassium 4.2 mmol/L (3.5-5.1)
[2022-03-16] MEDS: APIXABAN 5 MG TABLET PO SCH (09:40)
[2022-03-16] MEDS: SENNA 8.6 MG TAB PO SCH (09:40)
[2022-03-16] MEDS: ASPIRIN 81 MG ECTAB PO SCH (09:41)
[2022-03-16] MEDS: FUROSEMIDE 40 MG TAB PO SCH (09:41)
[2022-03-16] MEDS: METOPROLOL TARTRATE 50 MG TAB PO SCH ×2 (09:48→11:23)
--- NOTE | 2022-03-16 12:51 | Cardiology Progress Note ---
Date of Service March 16, 2022 Assessment & Plan (1) Atrial fibrillation with rapid ventricular response: (2) CHF (congestive heart failure): (3) Elevated troponin I level: (4) HTN (hypertension): Plan Patient admitted with 4 weeks of ongoing shortness of breath diagnosed with atrial fibrillation duration unknown. Developed acute on chronic systolic HF with mildly reduced LVEF at 45% per echo. Volume status improved with furosemide 40 mg daily. Renal function remains stable. Intermittent hypotension will not allow for addition of Aldactone or RO inhibitor/ARB/Entresto. Intravenous Cardizem discontinued 03/10/2022. Rate control mildly improved with titration of metoprolol to 50 mg twice daily. Hold parameters changed to systolic blood pressure less than 90 to improve compliance while hospitalized. Digoxin added yesterday 03/15/2022. Heart rate mildly improved. Recommend continuing metoprolol plus digoxin at discharge. [id number] score of 6 (age, CHF, HTN, possible prior TIA in 2018). Significant hematuria occurred overnight 03/09-03/10. Likely secondary to traumatic [place]. No recurrent hematuria over the past 5 days. IV heparin discontinued. Continue Eliquis 5 mg twice daily. Given mildly reduced LV function and wall motion abnormalities, consider outpatient nuclear stress test once volume status and rates improve. Continue ASA, and lisinopril. LDL 47 mg/DL. No indication for statin therapy currently. Admission and Anticipated Discharge Date Admission Date: March 11, 2022 Subjective Patient seen and examined at the bedside. Heart rate improved at rest. Episodes of rapid ventricular response noted with activity. Palpitations subjectively improved. Denies shortness of breath, orthopnea, or PND. Lower extremity edema unchanged. Poor historian. Daughter present for evaluation via mobile phone. Review of Systems Review of Systems: All systems reviewed & are unremarkable except as noted in Subjective Physical Exam Constitutional: well nourished; no acute distress Respiratory: no respiratory distress, no labored breathing and no retractions Auscultation: no crackles, no rales, no rhonchi and no wheezes Cardiovascular: Rate/Rhythm: + irregularly irregular Heart Sounds: normal S1 and normal S2; no murmur Vessels: radial pulses present; no JVD Extremities: + edema (1+ bilateral ankle edema) Gastrointestinal (Abdomen): Inspection/Auscultation: abdomen normal to inspection and normal bowel sounds; abdomen not distended Percussion/Palpation: abdomen soft; abdomen nontender, no guarding and abdomen not rigid Neurologic: CN's II-XI intact bilaterally and moves all extremities; no focal motor deficits Results & Data ([facility]) Vital Signs (Past 12 Hours) Vital Signs Temp Pulse Pulse Resp BP Pulse Ox O2 Del Method 03/16/22 12:17 36.5 C 03/16/22 11:18 132 H 119/87 03/16/22 09:46 82/63 L 03/16/22 08:21 Room Air 03/16/22 08:08 36.5 C 110 H 19 98/68 L 95 Room Air 03/16/22 06:15 120 H 03/16/22 02:24 36.4 C 92 H 20 89/63 L 97 Room Air (1) CHF (congestive heart failure) Heart failure chronicity: acute Heart failure type: unspecified Qualified Code(s): I50.9 - Heart failure, unspecified
--- NOTE | 2022-03-16 13:34 | Discharge Summary ---
Discharge Summary Date of Service March 16, 2022 Notes For Next Care Provider Patient was admitted with Paulette lopez of unknown duration and was found to be in heart failure with preserved ejection fraction. 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 Due to intermittent hypotension, RO inhibitor/Entresto/Aldactone could not be added. He will need blood test CBC/CMP/Mg level in a week time. He will also need follow-up with cardiology in 1 to 3 weeks time. Given mildly reduced LV function and wall motion abnormalities, consider outpatient nuclear stress test once volume status and rates improve per cardiology. Medication Changes From Visit Your prior to arrival amlodipine has been stopped. Metoprolol/digoxin/Lasix/Eliquis has been added. As needed hydroxyzine and lorazepam for anxiety. Admission HPI Per Admitting Provider Mr. Uli Gregory is an 86 year old male who presented to the [facility] via EMS after he called 911. He has stated that he has been experiencing SOB over the past few weeks, on and off, with more orthopnea this morning, along with feelings of 'his heart racing'. Three weeks ago he was seen in urgent care and treated for a URI with Prednisone (no abx). He also reports increased bilateral LE swelling. A CXR was performed and results indicate L > R pleural effusions an d atelectasis vs community-acquired pneumonia. He recently was treated as an outpatient for nummular eczema and was switched from Lisinopril to Amlodipine in case the ACEI was a contributor to his rash. In the ED, his BNP was 608 and his most recent ECHO was from 11/2021: EF 55-60% with mild TR but no pHTN. Additional PMH includes: HLD, HTN, prostate ca, H/O TIA and H/O Lymes Disease. Pt denies alcohol, smoking, recreational drug use. 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 Patient will be admitted for further evaluation and management. Please see A/P for further details. Admission Exam Per Admitting Provider Neuro: AAOx4, PERRLA, no aphagia, memory changes, CNII-XII grossly intact HEENT: head normocephalic, moist mucus membranes CV: S1/S2, (-) M/G/R, (+) 2 /L LE edema, cap refill < 3 seconds Resp: Lungs CTA in all dowd. On RA GI: Abdomen S/NT/ND, Ax4 bowel sounds, (-) CVA tenderness Musculoskeletal: 5/5 B/L UE strength, 5/5 B/L LE strength. No gait disturbance Skin: (+) rashes, not new , (-) erythema. Psych: euthymic mood Principal Dx & Hospital Course #1 = Principal Diagnosis (1) Atrial fibrillation with rapid ventricular response: (2) (HFpEF) heart failure with preserved ejection fraction: (3) HTN (hypertension): (4) HLD (hyperlipidemia): Plan 86 year old male who presented to the [facility] with SOB over the past few weeks, on and off, with more orthopnea on the AM of arrival day, along with feelings of 'his heart racing'. 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 + Bilateral LE swelling. Admitting CXR L > R pleural effusions and atelectasis vs CAP. Recently was treated as an OPT for nummular eczema and was switched from Lisinopril to Amlodipine in case the ACEI was a contributor to his rash. BNP 608 at presentation and most recent ECHO was from 11/2021: EF 55-60% with mild TR but no pHTN. Additional PMH includes: HLD, HTN, prostate ca, H/O TIA and H/O Lymes Disease. 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 He was managed for the following: AF with RVR: New onset; confirmed on EKG. Unknown duration. Status post IV Cardizem [discontinued 03/10/2022] started on po metoprolol 03/09/2022, started digoxin 03/15. Patient will be discharged on this 2 medications. Discussed with cardiology 03/16. Patient will need cardiology follow-up in 1 to 3 weeks upon discharge. He will likely need outpatient nuclear stress test once acute condition stabilizes. On eliquis. Pt still in afib w/ HR in 100s. Patient reports improvement in his dyspnea with exertion and overall feels better. HFpEF: Latest ECHO: 11/2021: EF 55-60%; mild TR, no pHTN Repeat ECHO with mildly reduced EF 45% 02/2022, could be in setting of new Afib BNP 608 at presentation Troponin 23.9 at presentation and flat trended. Patient being discharged on Lasix 40 Mg daily in the morning. Fluid restriction of 2 L/day. Hematuria and likely UTI:Hematuriaovernight 03/09 - 03/10 - could be due to traumatic brennan as patient was pulling at overnight of 03/09 - 03/10 on the background of heparin drip. -Heparin drip restarted 03/12 --> transitioned to eliquis 03/14 pm, patient with no hematuria since last 4 days. -Patient complained of some burning while passing urine 03/13, status post Rocephin. -Urology evaluated 03/11, appreciate recommendation. Pleural Effusions: Had a cough and URI over past few weeks; completed a Prednisone taper pack Leukocytosis on admission CXR Atelectasis vs CAP - persistence of leukocytosis - CT chest with bilateral small pleural effusions with atelectasis, no consolidation seen -Was being monitored off of antibiotic until 03/13, on 03/13 Pro-Victor M negative, patient started on Rocephin for possible UTI on 03/13 COVID-19 swab negative HTN: Goal SBP < 140 Recently Lisinopril switched to Amlodipine d/t nummular eczema. Amlodipine is stopped upon discharge. HLD: Diet controlled 03/16; LDL 82, HDL 53; TG 97 Nummular Eczema: Resolving; some rash noted on left forearm and back Takes Temovate create; continue Disposition: PCP: Dr. Tinoco Code: Full Point of Contact: Loreto, daughter [phone] Patient being discharged to [facility] with following instructions at the point of discharge: Follow-up with your primary care physician within a week time and then you will likely need blood test CBC/CMP/Mg level. While in hospital cardiology evaluated you for heart failure with preserved ejection fraction and atrial fibrillation with RVR. You have been added new medication Lasix, Eliquis, digoxin, metoprolol. Because of these medications, your home amlodipine has been discontinued as your blood pressure were running low due to new modifications in your medications. Restrict fluid intake to 2L/day. Also you had hematuria likely due to instrumentation/Brennan which has been resolved. You are being discharged on as needed hydroxyzine and lorazepam for anxiety. Advise to follow-up with cardiology as an outpatient in 1 to 3-week time. You will likely need outpatient nuclear stress test once acute condition stabilizes. Advise to take time and not to change position rapidly between lying/sitting/standing positions. Take your medications as prescribed. Discharge Exam GENERAL: Alert and oriented x3. NAD, on RA. Appears calm. HEENT: No pallor, no icterus. Pupils equal, round and reactive to light. Oral mucosa moist. NECK: No JVD, no neck masses. HEART: S1 and S2 heard. irregular rate and rhythm. No murmur, no gallop. RESPIRATORY SYSTEM: Normal AP diameter. No accessory muscle use. No wheezing, no crackles. ABDOMEN: Soft, bowel sounds present, nontender, no distention. CENTRAL NERVOUS SYSTEM: No facial droop. Speech is clear. Obeys simple commands. Moves extremities. EXTREMITIES: 1-2+ ble edema, no erythema seen. Updated Medication List Medication Instructions Recorded Confirmed Type amlodipine 5 mg tablet 5 mg PO DAILY 03/09/22 03/09/22 History aspirin 81 mg tablet,delayed 81 mg PO DAILY 03/09/22 03/09/22 History release clobetasol 0.05 % topical cream 1 applic topical BID PRN Flare ups 03/09/22 03/09/22 History epinephrine 0.3 mg/0.3 mL 0.3 mg IM .SEVERE REACTION 03/09/22 03/09/22 History injection, auto-injector sennosides 8.6 mg tablet (senna) 8.6 mg PO DAILY PRN Constipation 03/09/22 03/09/22 History apixaban 5 mg tablet (Eliquis) 5 mg PO BID #60 tabs 03/10/22 Rx digoxin 125 mcg (0.125 mg) tablet 125 mcg PO DAILY@1600 #30 tabs 03/16/22 Rx (Digitek) furosemide 40 mg tablet 40 mg PO QAM #30 tabs 03/16/22 Rx hydroxyzine HCl 25 mg tablet 25 mg PO TID PRN anxiety #90 tabs 03/16/22 Rx lorazepam 0.5 mg tablet 0.5 mg PO HS PRN anxiety #7 tabs 03/16/22 Rx melatonin 3 mg tablet 3 mg PO HS PRN sleep #14 tabs 03/16/22 Rx metoprolol tartrate 50 mg tablet 50 mg PO BID #60 tabs 03/16/22 Rx nitroglycerin 0.4 mg sublingual 0.4 mg sublingual UD PRN chest 03/16/22 Rx tablet (Nitrostat) pain #10 tabs polyethylene glycol 3350 17 gram 17 g PO DAILY PRN laxative effect 03/16/22 Rx oral powder packet (Miralax) #14 ea Hospital Stay Data Consultations 03/09/22 07:48 Consult Cardiology Routine 03/09/22 07:49 ED Decision to Admit Stat 03/10/22 11:48 Consult Urology Routine Diagnostic Imagining Performed 03/12/22 07:53 CT chest diagnostic wo con Routine Pending Results Patient Have Any Pending Studies at Discharge: No Discharge Instructions Given to Patient (Per Discharging Provider) Follow-up with your primary care physician within a week time and then you will likely need blood test CBC/CMP/Mg level. While in hospital cardiology evaluated you for heart failure with preserved ejection fraction and atrial fibrillation with RVR. You have been added new medication Lasix, Eliquis, digoxin, metoprolol. Because of these medications, your home amlodipine has been discontinued as your blood pressure were running low due to new modifications in your medications. Restrict fluid intake to 2L/day. Also you had hematuria likely due to instrumentation/Brennan which has been resolved. You are being discharged on as needed hydroxyzine and lorazepam for anxiety. Advise to follow-up with cardiology as an outpatient in 1 to 3-week time. You will likely need outpatient nuclear stress test once acute condition stabilizes. Advise to take time and not to change position rapidly between lying/sitting/standing positions. Take your medications as prescribed. Call 911 and go to the Emergency Room if: * You have tightness or pain in your chest that does not go away with rest or Nitroglycerin * You are very short of breath even with rest Call your doctor if any of the following symptoms or problems start or get worse: * Shortness of breath or difficulty breathing * Wake up at night short of breath * Chest pain * Cough * Swelling of your hands, fee, or legs * More fatigued or tired with your normal activity * Palpitations - sudden fast heart beats WEIGHT * Weigh yourself every morning after using the bathroom. * Use the same scale. * Wear the same amount of clothing. * Write your weight down on your chart. * Call your doctor if you gain more than 2-3 pounds in 1-2 days. MEDICATIONS * Use this discharge instruction sheet for instructions. * Take your medications at the time your doctor ordered. * Do not skip a dose of your medicines. * If you miss a dose of medicine, take as soon as possible, but DO NOT DOUBLE A DOSE. * Read your medicine information when you get home. * Know all of the side effects of your medicine. * Call your doctor's office if you have any side effects. * Be sure all of your doctors know what medicine and herbs you take (including cold, flu, and herbal medicine). * Pain Medicine: If you do not get relief from your pain, please call your doctor for help. Take the following with you to your follow-up doctor appointments: * Weight Chart * Medication List * List of questions Do not drink excessive alcohol, beer or wine. Total Time Total Time Spent Total Time Spent (In Minutes): 45
--- NOTE | 2022-03-24 08:40 | Coding Query ---
CONGESTIVE HEART FAILURE To Promote full compliance with coding requirements relating to patient care, physician participation is requested in all cases of intelligence operations specialist uncertainty. Please assist us with the following questions. A diagnosis of Congestive Heart Failure is documented in the patient's medical record. The Cardiology Consultation documents, "He has developed small b/l pleural effusions, edema, orthopnea, consistent with acute HF exacerbation, in setting of afib RVR. Echo in November revealed preserved EF. Repeat echo pending at time of consult", and 03/10 Cardiology Progress Note documents, "Due to likely persistent afib, he developed acute on chronic systolic HF with mildly reduced LVEF at 45% per echo", and further Cardiology Progress Notes, as on 03/11 document, "Developed acute on chronic systolic HF with mildly reduced LVEF at 45% per echo". It is not clear if the patient has HFPEF along with the Acute on Chronic Systolic CHF. To accurately code this diagnosis and to compare patient severity, we ask that you specify the type of heart failure by placing an X within the parenthesis (x). SYSTOLIC HEART FAILURE ( x ) Acute ( ) Chronic ( ) Acute on Chronic ( ) Rheumatic ( ) Unknown DIASTOLIC HEART FAILURE ( ) Acute ( ) Chronic ( ) Acute on Chronic ( ) Rheumatic ( ) Unknown COMBINED SYSTOLIC AND DIASTOLIC HEART FAILURE ( ) Acute ( ) Chronic ( ) Acute on Chronic ( ) Rheumatic ( ) Unknown Newly recognized acute systolic heart failure in the setting of atrial fibrillation with rapid ventricular response. Thank you Lisa SOLIS
== END 2022-03-16 14:49 | DRG 308 ==
LOC: ED 06:01 → EDINP 06:01 → 2E 11:39 → SUATTDRO 03-11 08:23